=== PATIENT | female | born 1970 | race Caucasian/White ===

== ENCOUNTER 2017-10-03 11:24 | Outpatient (CLI) | payer OTHER, SELFPAY ==
--- NOTE | 2017-10-03 11:21 | DI.REPORT_ITS ---
SYMPTOM/DIAGNOSIS: R TKA BONE LENGTH EXAMINATION AND RIGHT KNEE: Comparison is 01/15/17. The patient is now status post right total knee replacement. The orthopaedic hardware appears in good position. The bones appear intact. The right lower extremity measures 88.9 cm The left lower extremity measures 88.6 cm
== END 2017-10-03 11:25 ==
PROVIDERS: PCP Physician Assistant Medical; Visit Provider Physician Assistant
DX: Z96.651 Presence of right artificial knee joint (principal); Z47.1 Aftercare following joint replacement surgery
CPT/HCPCS: 73560; 77073

== ENCOUNTER 2017-11-01 10:30 | Outpatient (RCR) | payer OTHER, SELFPAY ==
--- NOTE | 2017-10-03 13:00 | IE_ITS ---
Date: 10/03/17 Referring: Dr. Jadon Orellana MD M.D. Diagnosis: s/p right TKA 09/18/17 P.T. Diagnosis: s/p right TKA 09/18/17 SUBJECTIVE: History of Present Illness: Patient is a 47 year old female referred for physical therapy status post R TKA on 09/18/[address] Orellana. She had follow up appointment earlier this morning with Dr. Orellana in which he said the incision is healing well and her ROM looks good per patient report. Says he took off her bandage. She has been doing exercises given to her in the hospital s TKA protocol. Says she is unable to do bridges and supine leg hangs are very painful. States her pain is decreased after completing her exercises. She also has been walking around her yard 3-4 times per day. She has been icing frequently about 6-7 days at home with cryocuff. She is wearing compression stockings both legs. She is not driving. She says she is sleeping terribly and is unable to find comfortable position. She said she will be out of work tentatively for 8 more weeks. She has some numbness and tingling lateral side right knee. She is ambulating using walking sticks and sometimes uses rollator at home. She has follow up with Dr. Orellana on October 31. Pain Ratin /10 presently, 7-8/10 at its worst, 4/10 at best. Pain Location: right anterior lower thigh and diffusely throughout knee. Prior Level of Function: independent Current Level of Function: difficulty sleeping, unable to drive, unable to work. Previous Treatment: Doing exercises given to her in preoperative packet. Social: Works as a pharmacist. Live in home with , kids, and dog. Has 4 steps to enter home. Her bedroom is on the first floor. Comorbidities: arthritis, incontinence Falls in the last year: No Reported hospitalizations in the last year -Yes - Dates of admission/reason: s/p right TKA Medications: hydromorphone, gabapentin, ibuprofen, ASA, docusate, pantoprazole , acetaminophen Quality of Life: Good Standardized Measures: LEFS score: 76% impaired OBJECTIVE: Observation: incision is healing well, no drainage. Pain with sit to supine transfers. Needed UE assistance bringing leg onto plinth. Bruising noted right lateral thigh and posterior knee. Gait: ambulating with walking sticks bilaterally, decreased knee and hip flexion right side, decreased stance time on right side, antalgia with limited stance Edema: swelling noted right knee and anterior thigh Girth measurements: Right side superior patella 52cm, mid patella 47.5cm, infrapatella 42.5cm. Left side superior patella 46cm, mid patella 41 cm, infrapatalla 38.5cm. ROM: Left knee AROM 0-130, Right knee AAROM 10-95 degrees. Hip AAROM WNL bilaterally. Joint Accessory Motion: Right patella femoral mobilizations slightly limited all motions. Strength: Able to perform SLR without extension lag right side. No other formal strength assessment performed. Neuro: numbness and tingling lateral right knee. Intact to light touch rest of right LE. Treatment: IE: [id number] Patient Education: Patient educated to continue performing HEP given to her at hospital, performing the ROM exercises at least twice per day. Educated to continue icing with cryocuff at home. Manual therapy:Performed STM anterior thigh to quad musculature. Patient felt relief after STM. Grade 1/2 anterior tibiafemoral joint mobilizations in sitting with distraction and grade1/2 posterior tibia femoral joint mobilizations in supine. Electrical Stim Unattended - 70349h:1 Inferential stim with cryotherapy x 15 minutes to right knee in supine with wedge under knees for comfort and elevation. Direct treatment time: 45 minutes Total treatment time: 60 minutes ASSESSMENT: Patient is a 47 year-old female referred for PT services with the diagnosis of s /p right TKA. Patient presents with clinical signs and symptoms consistent with diagnosis, as demonstrated by the following impairment level findings: pain , edema, decreased ROM, swelling, decreased motor control, impaired gait. Impairments are contributing to the following functional limitations: difficulty sleeping, unable to drive, unable to work. Patient is assessed as: Low 35422 based on the following: History: See comorbidities and social history. Examination: See above for functional limitations and impairments. Presentation: Stable Decision-Making: Low complexity 76% Disability based on LEFS Patient requires skilled PT intervention to remediate the above functional limitations to return to: __X_ Premorbid level of function __X__ Return to full functional mobility __X__ Return to work demands _X___ Improve QOL Prognosis: Excellent STG: __4__ weeks. 1. Patient will report pain in right knee no more than 4/10 with activity and at rest. 2. Patient will demonstrate right knee AROM 5-110 degrees or better. 3. Patient will score 50% impaired or less on the LEFS. 4. Independent HEP. LTG: __10__ weeks. 1. Patient will report no more then 2/10 pain in right knee at rest and with activity. 2. Patient will demonstrate right knee AROM 0-120 degrees or better. 3. Patient will demonstrate 5/5 strength all muscle groups right LE. 4. Patient will ambulate community distances on even and uneven surfaces with no assistive device and normal gait pattern independently. 5. Patient will score 10% impaired or less on the LEFS. PLAN: Patient to be seen 2 x per week, for 10 weeks, adjusting frequency of visits per patient symptoms and response to treatment. Treatment to include: Manual therapy - [id number]: P/AAROM, soft tissue stretching, joint mobilizations PF/TF, scar tissue massage, cross friction massage Therapeutic exercise - 48848.AROM, LE strengthening, proximal hip and core stabilization, education in HEP. Gait training, stairs training, Standing static and dynamic balance and proprioception activities. Inferential stim, [place] stim, cryotherapy all provided as needed and per protocol. Plan to discharge when above goals have been met. Thank you for this referral. Please do not hesitate to contact me with any questions or concerns regarding this patient's plan of care. Pauline Armenta, SPT Katey Arnold, MPT
--- NOTE | 2017-10-09 08:32 | PTTR_ITS ---
DATE: 10/09/17 SUBJECTIVE: Mairlia states that she feels as though she has turned the corner. She reports sleeping better, and having less pain. She is decreasing her pain meds and icing. Tries to stay active without over doing it. OBJECTIVE: Manual therapy: (73449y5). mobilizations of tib/fem jt including posterior and anterior glides, ROM using MET's in seated and supine position. LE distractions with tibial distractions and stretching into extension. Patella glides in all directions. Stretching of hamstrings, ITB and hip flex/quad in modified Clifford test position. Therapeutic procedures ([id number]). * x See flow sheet: initiated an in clinic routine for global LE strength and bike for ROM. * x Provided skilled instruction in proper exercise performance: proper quad engagement. * x Electrical Stim Unattended - 00877w6: ended with IFC and cryo x 15 min. Direct treatment time: 45 min Total treatment time: 60 min
--- NOTE | 2017-10-11 13:22 | PTTR_ITS ---
DATE: 10/11/17 SUBJECTIVE: Marilia c/o burning pain in the lateral aspect of her knee. She did indicate that she was on her feet a lot yesterday. She also admits that she has not been icing as frequently or wearing her compression stockings. OBJECTIVE: Manual therapy: (07431z3). mobilizations of tib/fem jt including posterior and anterior glides in seated and supine positions. Patella glides in all directions as well as stretching of hamstrings, ITB and hip flex/quads in modified Clifford test position. LE distractions via leg pulls. Scar tissue work and MLD. CFM over lateral knee for desensitization purposes. I continued with ROM of she was at 3-100 post mobs. She did perform stationary bike for ROM and was able to make full revolutions x 6 min, HR and HCS. * x Electrical Stim Unattended - [id number]: ended with IFC and cryo x 15 min. Direct treatment time: 45 min Total treatment time: 60 min
--- NOTE | 2017-10-16 10:30 | PTTR_ITS ---
DATE: October 16, 2017 SUBJECTIVE: Marilia continues to report she feels that she is making steady gains. She notes pain is definitely more than what she thought it would be. She has not driven yet and knows that she needs to get back to this and remains a little nervous in regards to this. OBJECTIVE: Manual therapy: (10187s1).Patellofemoral joint mobilization all planes to the right knee. Scar tissue mobilization. Upon observation has a stitch protruding out of the proximal pole of the incision. No drainage. Tried to pull with tweezers would not come loose. Mild redness surrounding. Will have Marilia keep an eye of this and call MD if gets worse or drainage starts. P/AAROM performed in supine. Soft tissue stretching to the hamstring, ITB and gentle quad in modified Clifford position. LE distractions with good terminal knee extension noted. Tibiofemoral joint mobilization Gr III anterior glides in seated then performed. Flexion stretching also provided in this position. Post mobilization left knee ROM 0-110 degrees. Therapeutic procedures (07037n8). * X HEP review: with focus on knee flexion stretching, and gait mechanics. * X See flow sheet: Open and closed chain stabilization per protocol with 10 minutes of stationary bike for ROM. Able to complete full revolution for entire time. * X Provided skilled instruction in proper exercise performance: promoting proper body mechanics and postural awareness. * X Provided skilled manual cues to facilitate proper muscle recruitment and/ or movement pattern: * X Other: 20 minutes of Wellness portion of the program then followed. Electrical Stim Unattended - 00512v0: Provided to the right knee along with cryotherapy with use of wedge pillow for elevation. This was completed for 15 minutes. Direct treatment time: 30 minutes Total treatment time: 65 minutes
--- NOTE | 2017-10-19 13:00 | PTTR_ITS ---
DATE: 10/19/17 SUBJECTIVE: Marilia states she woke up feeling very good this morning. Was able to take a short walk outside, which felt really good. Feels she is slowly gaining strength and increased mobility. Manual therapy: ([id number]). Did receive mobilization of the R patella as well as tibiofemoral, anterior/posterior mobs while in seated and supine positions. Soft tissue stretching of the R hamstring, ITB, hip flexors and quad musculature while in modified Clifford test position for 3 reps x20-30 seconds each. Stretching into end range flexion/extension was also performed in seated and supine positions. Therapeutic procedures (34385q2). See flow sheet focus was on strengthening on R LE and hip stabilizers as per TKA. * x Provided skilled instruction in proper exercise performance: * x Provided skilled manual cues to facilitate proper muscle recruitment and/ or movement pattern: Performed additional 15 mins of wellness, ending treatment with IFC and cryotherapy with leg elevated on wedge pillow. Direct treatment time: 30 MINS Total treatment time: 60 MINS SG/dl
--- NOTE | 2017-10-22 10:30 | PTTR_ITS ---
DATE: October 22, 2017 SUBJECTIVE: Marilia notes that she overdid at home over the weekend. She spent a lot of time out cleaning in her garden and in her home. She notes that she did some driving over the weekend and is much more confident in her ability to perform. OBJECTIVE: Manual therapy: (88799e9).Patellofemoral joint mobilization to the right knee all planes. Tibiofemoral joint mobilization Gr III anterior glides in seated position, posterior glides in supine position to the right knee. Soft tissue stretching to the hamstring, ITB, and SKC. P/AAROM to the right knee with focus on end range mobility. Post mobilization 5-108 degrees A right knee. Therapeutic procedures (40688e0). * X See flow sheet: Global open and closed chain LE stabilization per TKR protocol. * X Provided skilled instruction in proper exercise performance: promoting proper body mechanics and postural awareness. * X Provided skilled manual cues to facilitate proper muscle recruitment and/ or movement pattern: Electrical Stim Unattended - 87341n0: Ended along with cryotherapy to the right knee post session with use of wedge pillow for elevation. Continue to advance within symptom allowance per protocol. Direct treatment time: 40 minutes Total treatment time: 55 minutes
--- NOTE | 2017-10-25 08:07 | PTTR_ITS ---
DATE: 10/26/17 SUBJECTIVE: Marilia states that she is slowly doing better. She indicates that she sees the MD next week and needs to have a conversation with her boss as the schedule is about to come out. She does not feel as though she is ready to return to work at this point and is nervous she won't be ready for a little while. Her biggest concern about her job is that she works 2.5, 10hr days, which is a long time on her feet. OBJECTIVE: Manual therapy: (23372a0). mobilizations of tib/fem jt including posterior and anterior glides, patella glides in all directions. LE distractions via leg pulls with over pressure stretch into extension. Scar tissue mobs. ROM into flex in both seated and supine using MET's. STM t/o distal ITB. Stretching of hamstrings, ITB and piriformis as well as hip flex/ quad in modified Clifford test position. Therapeutic procedures (14598e7). * x See flow sheet: for global LE strength and stabilization. * x Provided skilled instruction in proper exercise performance: proper quad and glut engagement. She ended with cryo to knee x10 min with elevation. Direct treatment time: 45 min Total treatment time: 55 min.
--- NOTE | 2017-10-30 15:21 | PTTR_ITS ---
DATE: 10/30/17 SUBJECTIVE: Marilia states that she is doing a little better. She admits to doing too much and continues to struggle with swelling. She questions if she needs to continue wearing her compression stockings. She sees Dr. Orellana tomorrow. OBJECTIVE: Manual therapy: (65555q8). mobilizations of tib/fem jt including posterior and anterior glides, patella glides in all directions. Stretching of hamstrings, ITB and quads in the prone position. LE distractions via leg pulls. STM t/o quads and hamstrings. She performed some prone knee hangs x 2 min. ROM was 3-110 post mobs. Therapeutic procedures ([id number]). * x HEP review: encouraged prone knee hangs as well as ROM into flex. * x See flow sheet: for global LE strength and stabilizations. * x Provided skilled instruction in proper exercise performance: proper glut and quad engagement. ended with cryo x 10 min. Direct treatment time: 45 min Total treatment time: 60 min
--- NOTE | 2017-11-01 10:30 | PTTR_ITS ---
DATE: November 01, 2017 SUBJECTIVE: Marilia reports that her follow up went ok. She reports that he threatened a manipulation if she can not easily get to 105 degrees knee bend at her next follow up. She reports that she remains out of work at least until next MD consult in 4 weeks. They also want her to increase her PT regimen to 3x per week to promote her ROM. OBJECTIVE: Manual therapy: (02251t3).Patellofemoral joint mobilization all planes to the right knee. Gr III anterior glides in seated position to the right knee. Posterior glides Gr III supine to the right knee. Sof tissue stretching to the hamstring, ITB, piriformis and quad in modified Clifford position. STM throughout the extensor mechanism. Scar tissue mobilization also provided. P/AAROM to the right knee into flexion and extension with primary focus on end range flexion. Therapeutic procedures ([id number]). * X See flow sheet: Open and closed chain LE strength and stabilization via TKR protocol. * X Provided skilled instruction in proper exercise performance: promoting proper gait mechanics encouraging heel strike with quad set and knee flexion with swing phase. * X Provided skilled manual cues to facilitate proper muscle recruitment and/ or movement pattern: avoiding compensatory movement patterns and continued advancement in resistance and repetitions. Ended with cryotherapy to the right knee post session along with wedge pillow for elevation. Direct treatment time: 45 minutes Total treatment time: 55 minutes
== END 2017-11-02 23:59 | disposition home or self-care (01) ==
LOC: PT 10:30
PROVIDERS: PCP Physician Assistant Medical; Referring Provider Student in an Organized Health Care Education/Training Program; Visit Provider Student in an Organized Health Care Education/Training Program
DX: Z47.1 Aftercare following joint replacement surgery (principal); Z96.651 Presence of right artificial knee joint
CPT/HCPCS: 97014; 97110; 97140; 97161

== ENCOUNTER 2018-06-04 09:43 | Outpatient (CLI) | payer OTHER, SELFPAY ==
[2018-06-04 11:57] LABS: Cholesterol 212 mg/dL (50-200); Glucose 93 mg/dL (70-100); HDL Cholesterol 53 mg/dL (40-60); LDL CHOLESTEROL 120 mg/dL (<100); Triglyceride 129 mg/dL (30-150)
== END 2018-06-04 10:03 ==
PROVIDERS: PCP Nurse Practitioner Family; Visit Provider Nurse Practitioner Family
DX: Z00.00 Encounter for general adult medical examination without abnormal findings (principal); Z13.1 Encounter for screening for diabetes mellitus; Z13.220 Encounter for screening for lipoid disorders
CPT/HCPCS: 36415; 80061; 82947; 83721

== ENCOUNTER 2018-07-03 07:24 | Outpatient (CLI) | payer OTHER, SELFPAY ==
--- NOTE | 2018-07-03 11:00 | DI.MAMMO_ITS ---
SYMPTOM/DIAGNOSIS: SCREENING, Z12.31 MAMMOGRAM: Mammograms were interpreted according to the usual protocol including computer analysis with CAD system, tomosynthesis and C view imaging. Comparison with prior examinations. Breast density B. No suspicious masses or microcalcifications are seen. There is no definite evidence of malignancy. IMPRESSION: Negative mammogram. Routine screening is recommended. Category I. MQSA ASSESSMENT OF FINDINGS: Negative. Category 1. Patient will receive a letter notifying them of these results. BI-RADS category B. There are scattered areas of fibroglandular density.
== END 2018-07-03 07:44 ==
PROVIDERS: PCP Nurse Practitioner Family; Visit Provider Obstetrics & Gynecology Gynecology
DX: Z12.31 Encounter for screening mammogram for malignant neoplasm of breast (principal)
CPT/HCPCS: 77063; 77067

== ENCOUNTER 2018-08-20 13:35 | Outpatient (CLI) | payer OTHER, SELFPAY ==
[2018-08-20 14:29] LABS: Abs Immature Grans 0.02 k/cumm (0.0-0.09); Absolute Basophil Count 0.03 k/cumm (0.0-0.2); Absolute Eosinophil Count 0.08 k/cumm (0.0-0.7); Absolute Lymphocyte Count 3.08 k/cumm (1.2-3.4); Absolute Monocyte Count 0.33 k/cumm (0.11-0.7); Absolute Neutrophil Count 3.72 k/cumm (1.2-6.7); Basophils % 0.4; Eosinophils % 1.1; HCT 37.5 % (36.0-46.0); HGB 12.4 g/dL (12.0-15.5); Immature Grans % 0.3; Lymphocytes % 42.4; Mean Corp. HGB Concentration 33.1 g/dL (32.0-36.0); Mean Corpuscular Hemoglobin 30.8 pg (27.0-33.0); Mean Corpuscular Volume 93.1 fL (80-95); Mean Platelet Volume 9.4 fL (8.0-11.0); Monocytes % 4.5; Neutrophils % 51.3; Platelet Count 330 x1000/uL (130-400); RBC 4.03 m/cumm (4.00-5.20); White Blood Cell Count 7.26 k/cumm (4.4-10.8)
[2018-08-20 15:54] LABS: ALT 25 U/L (12-78); AST 18 U/L (15-37); Albumin 3.3 g/dL (3.4-5.0); Alkaline Phosphatase 79 U/L (46-116); Anion Gap 10.7 mmol/L (3-11); BUN 14 mg/dL (7-18); Bilirubin, Total 0.2 mg/dL (0.2-1.0); C-Reactive Protein 0.48 mg/dL (0.0-0.3); CO2 27.3 mmol/L (21.0-32.0); CREATININE 0.73 mg/dL (0.55-1.02); Chloride 102 mmol/L (98-107); Glucose 120 mg/dL (70-100); Sodium 140 mmol/L (136-145); Total Protein 7.3 g/dL (6.4-8.2)
[2018-08-20 16:33] LABS: Vitamin B12 339 pg/mL (193-986)
== END 2018-08-20 13:55 ==
PROVIDERS: PCP Nurse Practitioner Family; Visit Provider Internal Medicine Gastroenterology
DX: K52.9 Noninfective gastroenteritis and colitis, unspecified (principal)
CPT/HCPCS: 36415; 80053; 82607; 85025; 86140

== ENCOUNTER 2018-10-21 10:04 | Outpatient (CLI) | payer OTHER, SELFPAY ==
--- NOTE | 2018-10-21 09:05 | DI.RAD_ITS ---
SYMPTOM/DIAGNOSIS: RT TKA RIGHT KNEE: 10/21 Two views were obtained and show total knee joint replacement in position. Components appear well seated. No other significant bony abnormality seen.
== END 2018-10-21 10:24 ==
PROVIDERS: PCP Nurse Practitioner Family; Visit Provider Physician Assistant
DX: Z96.651 Presence of right artificial knee joint (principal); Z47.1 Aftercare following joint replacement surgery
CPT/HCPCS: 73560

== ENCOUNTER 2018-10-22 06:25 | Day surgery (SDC) | payer OTHER, SELFPAY ==
[2018-10-22 06:25] VITALS: BP 134/92; PULSE 83; RESP 19; TEMP 36; O2SAT 98
--- NOTE | 2018-10-22 06:56 | HPE_ITS ---
Date of service: 10/22/18 Time of Service: 06:56 Assessment and Plan (1) Frequent stools: Current visit: No Status: None A\\ Chronic Diarrhea Seen by GI at [facility] and they recommended Colonoscopy with biopsies to rule out microscopic colitis P\\ Colonoscopy under sedation with biopsies Risks, benefits and complications have been reviewed. Complications include but are not limited to bleeding, pain, perforation, missed small lesion/polyp, sore throat, aspiration and adverse reaction to the medications. Questions were entertained and answered to their satisfaction and they wished to proceed. No guarantees were given or implied. History of Present Illness Narrative: Marilia is here today to discuss a colonoscopy. She has never had one before. She was seen at [facility] for chronic diarrhea since last year. [facility] recommended Colonoscopy with biopsies to rule out Microscopic colitis. Marilia tells me that she had been taking a lot of Ibuprofen last year for her knee. Her knee feels much better now since she had her total knee replacement. She has stopped taking ibuprofen but continues to have frequent BM's. She ahs ahd 5 BM's so far today. Sometimes she has been incontinent as well. Stool character: watery Stool volume: small Stool frequency: 5-6 x a day Able to tolerate fluids: Yes Associated with meals: No Associated with milk or milk products: No Sorbitol consumption: No Metformin use: No Previous treatment: Reports none Associated symptoms: Reports fecal incontinence; Denies fatigue, fever(s), vo miting or weight loss There have been no changes in her health since she was last seen. [facility] Medical History disc problems Frequent stools Lumbar spine scoliosis R knee injury (Resolved) Right knee DJD (Resolved 07/23/14) Surgical History Biopsy of breast History of total right knee replacement (TKR) (Inactive 09/18/17) Ligation of fallopian tube (~2004) Family History Mother Heart disease Hyperlipidemia Grandmother Diabetes Personal history of malignant neoplasm Social History Smoking/Tobacco Use Status: Never Alcohol Intake: current Alcohol Intake frequency: a few times a month Drug use: Never Substance use type: does not use Household members: spouse, children and other Details: Abdirahman Dooley x 29yrs. Travels for work - sales. Darian Cordon @ [employer] Number of Children: 2 What is your relationship status?: Panel score (0-1 are the most socially isolated patients): 1 Seatbelt use: always Do you feel safe at home: Yes Do you feel safe in your relationship?: Yes Female Reproductive History Menstrual Age of Menarche: 14 Duration of menses: 3-5 days control method: permanent sterilization History History 2 Para Hx # Term Pregnancies 2 Multiple births Hx # Pregnancies Ectopic pregnancies AB induced Hx Number of Living Children AB spontaneous Meds Home Medications Medication Instructions Recorded Confirmed Type calcium carbonate-vitamin D3 1 ea PO DAILY 07/02/17 10/22/18 History acetaminophen [Mapap Extra 1,000 mg PO Q8H #90 tab 09/19/17 10/22/18 Rx Strength] Allergies Allergy/AdvReac Type Severity Reaction Status Date / Time No Known Drug Allergies Allergy unknown Unverified 10/22/18 06:29 Exam [facility] Head: normocephalic and atraumatic Resp Effort & Inspection: normal respiratory effort Auscultation: clear to auscultation bilaterally Cardio Rate: regular rate Rhythm: regular rhythm Heart Sounds: no gallops, no murmurs and no rubs Results Last Vital Signs Temp 96.8 F L 10/22/18 06:25 Pulse 83 10/22/18 06:25 Resp 19 10/22/18 06:25 BP 134/92 H 10/22/18 06:25 Pulse Ox 98 10/22/18 06:25
[2018-10-22] MEDS: Lactated Ringers 1,000 ML 80 ML IV (06:59)
--- NOTE | 2018-10-22 06:59 | W.COLOREPORT ---
Date of service: 10/22/18 Time of Service: : Colonoscopy Report Date of procedure: 10/22/18 Pre-op diagnosis general: Chronic Diarrhea Post-op diagnosis procedure note: same Procedure: Colonoscopy with biopsies and polypectomy Surgeon: Mylene Wolfe Anesthesia proc note operative: other (General/ ASA 2/Ariana Dukes, ELVI) Estimated blood loss (mL): 5 Pathology: other (Randome bx of colon, ascending colon polyp) Complications: None Disposition: same day Indications: Mrs. Rubalcava is a 48 year old female with chronic diarrhea who was seen by [facility] and I was asked to do a Colonoscopy with random biopsies to rule out microscopic colitis. Risks, benefits and complications have been reviewed. Complications include but are not limited to bleeding, pain, perforation, missed small lesion/polyp, sore throat, aspiration and adverse reaction to the medications. Questions were entertained and answered to their satisfaction and they wished to proceed. No guarantees were given or implied. Prep: Miralax/Dulcolax Procedure Start Time: : Procedure End Time: :51 Retraction Time: 17 minutes Findings: Normal appearing colon mucosa. One small polyp in the ascending colon polyp Procedure Description: After informed consent was obtained the patient was taken to the procedure room and placed in a left decubitous position. Monitors were applied and a time out was done. The patients name, date of , procedure, allergies to medications and metal in their body was reviewed. The patient was then sedated. Once sedated and comfortable a rectal exam was done. External exam was normal. Internal exam revealed a normal sphincter tone and no palpable masses. The scope was then introduced and retro-flexed. No internal hemorrhoids were identified. The scope was then advanced to the cecum without difficulty. The TI and appendiceal orifice were identified. The prep was good. The scope was then slowly retracted over 17 minutes back into the rectum. Polyps were removed in the ascending colon with cold forceps. There were diverticula noted in the sigmoid colon. Randomw bx were taken throughout the colon to rule out microscopic colitis. The scope was removed and the patient was woken up and taken back to Same day surgery in stable condition. The patient tolerated the procedure well and there were no immediate complications. Follow up: The patient should follow up in 5 years unless they develop changes in bowel habits or other new gastrointestinal complaints.
--- NOTE | 2018-10-22 07:01 | W.PM.DSUDISC ---
Discharge Plan Disposition Patient Disposition: HOME Condition: Good Discharge Details Reason For Visit: Chronic Diarrhea Attending Provider: Mylene Wolfe Primary Care Provider: Cata Lundy Home Meds and New Rx's Prescriptions: Continued calcium carbonate-vitamin D3 1 EACH tablet 1 ea PO DAILY RF: 0 acetaminophen [Mapap Extra Strength] 500 MG tablet 1,000 mg PO Q8H Qty: 90 RF: 3 Discharge Instructions Instructions: Colonoscopy (GEN), Diverticulosis (ED) Additional Instructions: Findings: Normal appearing colon One small polyp Diverticulosis Follow up: depends on the pathology results Please call if you develop: fevers >101.5 Nausea or Vomiting Abdominal pain that is not transient DAY SURGERY UNIT POST COLONOSCOPY INSTRUCTIONS 1. Because there will be medication in your system for the next 24 hours, you may feel a little sleepy. Your coordination will be affected. Therefore: a. Do not drive or operate dangerous equipment for 24 hours. b. Do not drink alcohol beverages for 24 hours (not even beer). c. Plan to go home and rest for the day. 2. Generally there are no restrictions on your activity after a day or so has gone by, but you may feel a bit fatigued for a few days. 3 After you arrive home you may have a light meal and return to a normal diet as you can tolerate it without feeling sick to your stomach. 4. After surgery, you may feel pain or discomfort. This should be only transient, but if it persists please contact your doctor. 5. If there are any questions regarding the findings of your procedure, please feel free to contact your doctor. 6. If you are unable to contact your doctor with a problem, contact the hospital at [phone]. 7. Continue all your regular medications unless directed otherwise. I understand the above instructions and have no questions. Signature of Patient or Responsible Adult Escort Date/Time Name of Responsible Adult Escort Signature of Nurse Date/Time Activity:: Activity as Tolerated Diet:: As Tolerated Discharge Orders Discharge Orders: Discharge Order (Routine); Ordered 10/22/18 Ordered By: Mylene Wolfe DS: Diagnosis Discharge Diagnosis (1) Frequent stools: Status: None
[2018-10-22] MEDS: Ondansetron 4 MG/2 ML VIAL (07:25)
[2018-10-22] MEDS: Lidocaine 2% Pres-Free 5 ML VIAL (07:25)
[2018-10-22] MEDS: PROPOFOL 500 MG/50 ML BTL 40.5 MG (07:25)
--- NOTE | 2018-10-22 07:30 | BOWEL_PTH ---
PATIENT: Marilia Rubalcava LOC: [facility] U#:[id number] AGE/SX: 48/F ROOM: RE10/22/[address]: Mylene Wolfe MD : 1970 BED: DIS: 10/22/2018 SPEC #: [id number] RECD: 10/22/18 12:40 STATUS: JEANE RE #: [id number] KAREN: 10/22/18 07:[address]: Mylene Wolfe DEPT: Surgical Specimen RECD BY: Beena Bucio ENTERED: 10/22/18 12:42 SP TYPE: Bowel OTHR DR: Cata Lundy Tissues: 1 - BIOPSY BOWEL 2 - BIOPSY BOWEL 3 - BIOPSY BOWEL 4 - BIOPSY BOWEL 5 - BIOPSY BOWEL Procedures: GROSS AND MICRO LEVEL 4 Comments: [id number]
[2018-10-22 08:35] VITALS: BP 132/85; PULSE 83; RESP 16; TEMP 36; O2SAT 96
== END 2018-10-22 09:05 | disposition home or self-care (01) ==
PROVIDERS: PCP Nurse Practitioner Family; Visit Provider Surgery
PROC: 0DJD8ZZ Inspection of Lower Intestinal Tract, Via Natural or Artificial Opening Endoscopic (ICD-10-PCS; CPT 45378; principal; 2018-10-22 07:30)
DX: K52.9 Noninfective gastroenteritis and colitis, unspecified (principal); D12.2 Benign neoplasm of ascending colon; K57.30 Diverticulosis of large intestine without perforation or abscess without bleeding
CPT/HCPCS: 45380; 81025; 88305; NC; J2405

== ENCOUNTER 2019-04-18 14:19 | Outpatient (CLI) | payer OTHER, SELFPAY ==
[2019-04-18 14:49] LABS: Abs Immature Grans 0.01 k/cumm (0.0-0.09); Absolute Basophil Count 0.05 k/cumm (0.0-0.2); Absolute Eosinophil Count 0.07 k/cumm (0.0-0.7); Absolute Monocyte Count 0.65 k/cumm (0.11-0.7); Absolute Neutrophil Count 4.36 k/cumm (1.2-6.7); Basophils % 0.7; HCT 37.7 % (36.0-46.0); HGB 12.2 g/dL (12.0-15.5); Immature Grans % 0.1 %; Mean Corp. HGB Concentration 32.4 g/dL (32.0-36.0); Mean Corpuscular Hemoglobin 30.3 pg (27.0-33.0); Mean Corpuscular Volume 93.8 fL (80-95); Monocytes % 9.1; Neutrophils % 61.1; Platelet Count 346 x1000/uL (130-400); RBC 4.02 m/cumm (4.00-5.20); White Blood Cell Count 7.14 k/cumm (4.4-10.8)
[2019-04-18 16:09] LABS: ALT 18 U/L (14-59); AST 16 U/L (15-37); Albumin 3.3 g/dL (3.4-5.0); Alkaline Phosphatase 82 U/L (46-116); Anion Gap 9.3 mmol/L (3-11); BUN 14 mg/dL (7-18); Bilirubin, Total 0.2 mg/dL (0.2-1.0); C-Reactive Protein 2.06 mg/dL (0.0-0.3); CO2 27.7 mmol/L (21.0-32.0); Calcium 8.4 mg/dL (8.5-10.1); Chloride 106 mmol/L (98-107); Glucose 105 mg/dL (74-106); Potassium 4.1 mmol/L (3.5-5.1); Sodium 143 mmol/L (136-145)
[2019-04-21 12:27] LABS: IgA 543 mg/dL (85-499); IgG 940 mg/dL (610-1,616); IgM 136 mg/dL (35-242)
== END 2019-04-18 14:39 ==
PROVIDERS: PCP Nurse Practitioner Family; Visit Provider Internal Medicine Gastroenterology
DX: K52.9 Noninfective gastroenteritis and colitis, unspecified (principal)
CPT/HCPCS: 36415; 80053; 82784; 83516; 85025; 86140

== ENCOUNTER 2019-05-01 07:34 | Outpatient (REF) | payer OTHER, SELFPAY ==
[2019-05-08 13:26] LABS: Pancreatic Elastase, F >500 mcg/g
== END 2019-05-01 07:54 ==
LOC: LBN 07:34
PROVIDERS: PCP Nurse Practitioner Family; Visit Provider Internal Medicine Gastroenterology
DX: K52.9 Noninfective gastroenteritis and colitis, unspecified (principal)
CPT/HCPCS: 82656; 82710

== ENCOUNTER 2019-08-16 09:41 | Emergency (ER) | payer OTHER, SELFPAY ==
--- NOTE | 2019-08-16 09:44 | ED.GENADUL_ITS ---
Discharge Plan Disposition Patient Disposition: HOME Condition: Good Discharge Details Chief Complaint: Recheck Clinical Impression: Encounter for screening laboratory testing for COVID-19 virus Primary Care Provider: Cata Lundy ED Provider: Miriam Brown Home Meds and New Rx's Prescriptions: Continued calcium carbonate-vitamin D3 1 EACH tablet 1 ea PO DAILY RF: 0 acetaminophen [Mapap Extra Strength] 500 MG tablet 1,000 mg PO Q8H Qty: 90 RF: 3 Discharge Instructions Additional Instructions: Please continue to quarantine until results have returned. If you develop any symptoms please seek care urgently once again. Stand Alone Forms: PENDING COVID-19 TESTING Medical Decision Making COVID-19 swab performed. Patient has been going to for the past 9 days with retained [place]. Patient will continue to quarantine until results have returned. She was given instructions to call Sunday to obtain results. She will return with any new or worsening symptoms. All questions and concerns were addressed and she is agreement with plan. HPI General Mode of arrival: ambulatory . Date/Time Provider Initiated Documentation: 08/16/19 09:44 . Limitations to Documentation: no limitations . Information obtained by: patient and RN notes reviewed . HPI Narrative: Patient is a pleasant 49-year-old female presents today requesting COVID-19 swab be performed secondary return to work. Patient works at the hospital, is an essential healthcare worker. Secondary to emergent family situation patient did have to travel to [place]. She has been quarantined at home for 7 days since returning from [place]. Is here to receive COVID swab so this may be completed prior to her returning to work. Related Data Home Medications Medication Instructions Recorded Confirmed calcium carbonate-vitamin D3 1 ea PO DAILY 07/02/17 08/16/19 acetaminophen [Mapap Extra 1,000 mg PO Q8H #90 tab 09/19/17 08/16/19 Strength] Previous Rx's Medication Instructions Recorded acetaminophen [Mapap Extra 1,000 mg PO Q8H #90 tab 09/19/17 Strength] Allergies Allergy/AdvReac Type Severity Reaction Status Date / Time No Known Drug Allergies Allergy unknown Unverified 08/16/19 09:49 Review of Systems Constitutional Constitutional: Reports as per HPI, Denies chills, Denies fever(s) and Denies headache(s) Eyes Eyes: Reports as per HPI, Denies eye discharge and Denies irritation ENT Ears, Nose, Mouth, and Throat: Reports as per HPI, Denies headache(s) and Denies nasal congestion Cardiovascular Cardiovascular: Reports as per HPI, Denies chest pain and Denies dyspnea Respiratory Respiratory: Reports as per HPI, Denies chest congestion, Denies cough and Denies dyspnea Gastrointestinal Gastrointestinal: Reports as per HPI, Denies abdominal pain, Denies change in bowel habits, Denies nausea and Denies vomiting Integumentary/Breasts Skin/Breast: Reports as per HPI and Denies rash Neurologic Neurologic: Reports as per HPI and Denies headache(s) [facility] Medical History disc problems One thoracic and lumbar Frequent stools 5-6x/day with some urgency. responsive to Metamucil. 08/2014 Celiac Dz w/u neg. 2018 deferred referral to [facility]. Seeing [place] doc at [facility]. Lumbar spine scoliosis R knee injury (Resolved) R knee arthritis. 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 Orellana Ligation of fallopian tube (~2004) done via colpotomy incision Social History Smoking/Tobacco Use Status: Never Alcohol Intake: current Alcohol Intake frequency: a few times a month Drug use: Never Substance use type: does not use Household members: spouse, children and other Details: Kaye- Miah x 29yrs. Travels for work - sales. S, Darian @ [facility] [employer] Number of Children: 2 What is your relationship status?: Panel score (0-1 are the most socially isolated patients): 1 Seatbelt use: always Do you feel safe at home: Yes Do you feel safe in your relationship?: Yes Female Reproductive History Menstrual Age of Menarche: 14 Duration of menses: 3-5 days control method: permanent sterilization History History 2 Para Hx # Term Pregnancies 2 Multiple births Hx # Pregnancies Ectopic pregnancies AB induced Hx Number of Living Children AB spontaneous Exam Const General: cooperative, healthy appearing, comfortable, no acute distress, well developed and well groomed Nutritional Appearance: average body habitus and well nourished Orientation: alert and awake [facility] Head: normal to inspection Ears: hearing grossly normal bilaterally General nose exam: external nose normal Face and sinus: normal facial exam Mouth: oral mucosae normal, lip normal and tongue normal Eyes General: appearance normal, both eyes and all related structures Neck Neck: normal visual inspection, full ROM, no lymphadenopathy and no meningeal signs Resp Effort & Inspection: normal respiratory effort, able to speak in complete sentences and no respiratory distress Auscultation: clear to auscultation bilaterally, no rales, no rhonchi and no wheezes Cardio Rate: regular rate Rhythm: regular rhythm Heart Sounds: S1 normal and S2 normal Skin General skin exam: no rashes or lesions noted Neuro General: patient alert and patient awake Cognition: normal cognition Speech: speech normal Gait: normal gait Psych Appearance: grossly normal and well kempt Mental Status: mental status grossly normal Speech and Movement: speech and movement normal
[2019-08-16 09:46] VITALS: BP 162/85; PULSE 76; RESP 16; TEMP 36.6; O2SAT 99
[2019-08-17 12:47] LABS: COVID-19 RT-PCR UVMMC Result Negative (Negative)
== END 2019-08-16 10:15 | disposition home or self-care (01) ==
PROVIDERS: Emergency Provider Physician Assistant; PCP Nurse Practitioner Family
DX: Z03.818 Encounter for observation for suspected exposure to other biological agents ruled out (principal)
CPT/HCPCS: U0003

== ENCOUNTER 2019-09-23 01:15 | Outpatient (CLI) | payer OTHER, SELFPAY ==
--- NOTE | 2019-09-23 08:00 | DI.MAMMO_ITS ---
EXAM: MG MAMMO SCREENING CLINICAL HISTORY: screening TECHNIQUE: Bilateral full field digital CC and MLO mammographic images were obtained with 3D tomosyn thesis and utilizing computer aided detection (CAD). COMPARISON: Available for comparison. FINDINGS: Masses/Architectural Distortion: None seen. Microcalcifications: No suspicious pleomorphic-type are seen. Skin Thickening/Nipple Retraction: None. IMPRESSION: 1. No significant interval change with no specific features of malignancy noted. 2. Unless there is more urgent need, screening mammography is recommended, as per [employer] guidelines. BI-RADS Category 1 - Negative Breast Density - Category B - Scattered areas of fibroglandular density A negative radiographic report should not delay biopsy if a dominant or clinically suspicious mass is present. Up to ten percent of cancers are not identified on mammography. A negative report may reinforce clinical impression. Adenosis and dense breasts may obscure an underlying neoplasm. False positive reports average 6 to 10%. Patient will receive a letter notifying them of these results.
== END 2019-09-23 01:35 ==
PROVIDERS: PCP Nurse Practitioner Family; Visit Provider Nurse Practitioner Family
DX: Z12.31 Encounter for screening mammogram for malignant neoplasm of breast (principal); R92.2 Inconclusive mammogram
CPT/HCPCS: 77063; 77067

== ENCOUNTER 2019-09-24 04:03 | Outpatient (CLI) | payer OTHER, SELFPAY ==
[2019-09-24 12:23] LABS: Absolute Basophil Count 0.05 k/cumm (0.0-0.2); Absolute Lymphocyte Count 2.95 k/cumm (1.2-3.4); Absolute Monocyte Count 0.43 k/cumm (0.11-0.7); Absolute Neutrophil Count 2.69 k/cumm (1.2-6.7); Basophils % 0.8; Eosinophils % 1.6; HCT 38.5 % (36.0-46.0); HGB 12.3 g/dL (12.0-15.5); Lymphocytes % 47.4; Mean Corp. HGB Concentration 31.9 g/dL (32.0-36.0); Mean Corpuscular Hemoglobin 29.8 pg (27.0-33.0); Mean Corpuscular Volume 93.2 fL (80-95); Mean Platelet Volume 9.4 fL (8.0-11.0); Monocytes % 6.9; Neutrophils % 43.3; Platelet Count 346 x1000/uL (130-400); RBC 4.13 m/cumm (4.00-5.20); RBC Distribution Width 13.3 % (11.7-14.6); White Blood Cell Count 6.22 k/cumm (4.4-10.8)
[2019-09-24 13:05] LABS: Iron 98 ug/dL (50-170); Total Iron Binding Capacity 312 ug/dL (250-450); Transferrin Sat 31 % (15-50)
[2019-09-24 13:29] LABS: Vitamin D 25 Total 18.6 ng/ml (30-100)
[2019-09-24 13:49] LABS: ALT 22 U/L (14-59); AST 17 U/L (15-37); Albumin 3.4 g/dL (3.4-5.0); Alkaline Phosphatase 74 U/L (46-116); BUN 16 mg/dL (7-18); Bilirubin, Total 0.3 mg/dL (0.2-1.0); CREATININE 0.68 mg/dL (0.55-1.02); Chloride 103 mmol/L (98-107); Ferritin 36 ng/mL (8-252); Glucose 90 mg/dL (74-106); Potassium 4.1 mmol/L (3.5-5.1); Sodium 141 mmol/L (136-145); Total Protein 7.4 g/dL (6.4-8.2); Vitamin B12 344 pg/mL (193-986)
[2019-09-24 14:07] LABS: C-Reactive Protein 0.51 mg/dL (0.0-0.3)
[2019-09-26 12:48] LABS: Zinc, Serum 0.71 mcg/mL (0.66-1.10)
== END 2019-09-24 04:23 ==
PROVIDERS: PCP Nurse Practitioner Family; Visit Provider Internal Medicine Gastroenterology
DX: K52.9 Noninfective gastroenteritis and colitis, unspecified (principal)
CPT/HCPCS: 36415; 80053; 82306; 82607; 82728; 83540; 83550; 84630; 85025; 86140

== ENCOUNTER 2019-12-29 09:15 | Outpatient (CLI) | payer OTHER, SELFPAY ==
[2020-01-01 00:10] LABS: Patient Race White; SARS-CoV-2 RNA Undetected (Undetected); SARS-CoV-2 Specimen Source Nasal
== END 2019-12-29 09:35 ==
PROVIDERS: Nurse Practitioner Family; PCP Nurse Practitioner Family; Visit Provider Physician Assistant
DX: Z20.828 Contact with and (suspected) exposure to other viral communicable diseases (principal)
CPT/HCPCS: U0003

== ENCOUNTER 2020-03-04 11:06 | Outpatient (REF) | payer OTHER, SELFPAY ==
[2020-03-05 14:30] LABS: COVID-19 RT-PCR UVMMC Result Negative (Negative)
== END 2020-03-04 11:26 ==
LOC: LBO 11:06
PROVIDERS: Visit Provider Nurse Practitioner Family
DX: Z11.59 Encounter for screening for other viral diseases (principal)
CPT/HCPCS: U0003

== ENCOUNTER 2020-03-09 10:16 | Outpatient (CLI) | payer OTHER, SELFPAY ==
[2020-03-09 23:41] LABS: COVID-19 RT-PCR UVMMC Result Positive (Negative)
== END 2020-03-09 10:36 ==
DX: Z11.59 Encounter for screening for other viral diseases (principal)
CPT/HCPCS: U0003

== ENCOUNTER 2020-03-26 17:57 | Emergency (ER) | payer OTHER, SELFPAY ==
[2020-03-26 18:10] VITALS: BP 147/82; PULSE 88; RESP 18; TEMP 36.4; O2SAT 100
--- NOTE | 2020-03-26 18:15 | DI.RAD_ITS ---
EXAM: XR WRIST LT COMPLETE CLINICAL HISTORY: fall injury. TECHNIQUE: 2D digital imaging was performed. COMPARISON: No exams were available for comparison FINDINGS: There fractures of the distal radius and ulna. The distal radial fracture and violates the radiocarp al joint. There is also a small avulsed fragment off the dorsal aspect of the distal radius. There is also minimally displaced fracture of the ulnar styloid. No carpal dislocation. Scaphoid appears unremarkable. No osseous lesions. IMPRESSION: Fracture of the distal radius which involves the radiocarpal joint. Also ulnar styloid fracture. DATA REPOSITORY: RADIATION DOSE DELIVERED:
--- NOTE | 2020-03-26 18:41 | DI.VRAD_ITS ---
PROCEDURE INFORMATION: Exam: XR Left Wrist Exam date and time: 03/26/2020 6:18 PM Age: 50 years old Clinical indication: Injury or trauma; Blunt trauma (contusions or hematomas); Wrist; Left; Patient HX: Fall injury, per PT: Fell while skating TECHNIQUE: Imaging protocol: XR Left wrist. Views: 3 or more views. COMPARISON: No relevant prior studies available. FINDINGS: Bones/joints: Acute comminuted intra-articular fracture of the distal left radius without significant displacement or angulation. Associated ulnar styloid process fracture. Soft tissues: Normal. IMPRESSION: Acute distal left radius and left ulnar styloid process fracture. Dictated and Authenticated by: Fidel Garner MD. Ordering:SAE Mccall MD
--- NOTE | 2020-03-26 19:21 | W.ED.GENAD ---
Discharge Plan Disposition Patient Disposition: HOME Condition: Stable Discharge Details Clinical Impression: Closed fracture distal radius and ulna Primary Care Provider: Kelli Almeida ED Provider: Cal Rosa Home Meds and New Rx's Prescriptions: Continued vitamin B complex [B Complex-Vitamin B12] Tablet 1 tab PO DAILY RF: 0 diclofenac sodium [Voltaren] 1 % gel 4 g topical QID Qty: 100 RF: 6 calcium carbonate-vitamin D3 1 EACH tablet 1 ea PO DAILY RF: 0 acetaminophen [Mapap Extra Strength] 500 MG tablet 1,000 mg PO Q8H Qty: 90 RF: 3 ibuprofen 800 mg Tablet 800 mg PO TID PRNRF: 0 Discharge Instructions Instructions: Wrist Fracture in Adults (ED) Additional Instructions: Hydrocodone as directed, may cause drowsiness and/or constipation. You may want to take psbv-kom-admwxvy stool softeners while taking this medication. Hnzp-sah-dkkazsn Motrin as directed. You may also use qftm-fyq-fptsuwv Tylenol however remember there is a component of Tylenol in the hydrocodone, do not exceed 4 g/day. Rest, elevate, cool compresses every 2 hours for 20 minutes. Wear splint until reevaluated by orthopedics. I have placed you on the orthopedic list, contact their office on Sunday for prompt outpatient reevaluation. 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 No other injuries. She appears well, nontoxic. Neuro, vascular, tendon intact. Will obtain x-ray to rule out any bony abnormality. X-ray read by me and confirmed by part radiology has an acute distal left radius and left ulnar styloid process fracture. Discussed x-ray findings with patient. I will provide a take-home pack of Vicodin for discomfort. We will place her on the orthopedic list and have her contact orthopedics on Sunday for prompt outpatient reevaluation. Will place lab rolling and then a voar Ortho-Glass splint. Patient tolerated well. Neuro, vascular, tendon intact status post splint administration as examined by me. Sling offered and declined. Patient has no additional questions or concerns and is comfortable discharge at this time. Medical Records Medical records reviewed: Yes I reviewed the patient's medical records. HPI General Mode of arrival: ambulatory. Date/Time Provider Initiated Documentation: 03/26/20 17:59. Limitations to Documentation: no limitations. Information obtained by: patient. HPI Narrative: This is a 50-year-old female, tosg-cgbf-tmyaqjiz, who fell earlier this afternoon on her out stretched left wrist. She reports the pain is moderate at rest, worse with movement. She has taken rffu-nal-zvwwbvb medication for symptomatic control and used ice. She reports occasional tingling in her second and third digit. Denies any true numbness or weakness. Denies any other injuries. Related Data Home Medications Medication Instructions Recorded Confirmed calcium carbonate-vitamin D3 1 ea PO DAILY 07/02/17 03/26/20 acetaminophen [Mapap Extra 1,000 mg PO Q8H #90 tab 09/19/17 03/26/20 Strength] vitamin B complex 1 tab PO DAILY 08/26/19 03/26/20 diclofenac sodium 1 % topical gel 4 g TOPICAL QID #100 g 02/16/20 03/26/20 ibuprofen 800 mg PO TID PRN 03/26/20 03/26/20 Previous Rx's Medication Instructions Recorded acetaminophen [Mapap Extra 1,000 mg PO Q8H #90 tab 09/19/17 Strength] diclofenac sodium 1 % topical gel 4 g TOPICAL QID #100 g 02/16/20 Allergies Allergy/AdvReac Type Severity Reaction Status Date / Time No Known Drug Allergies Allergy unknown Verified 03/26/20 18:12 General Stated Complaint: Orthopedic CHARLEY: 4 Review of Systems Constitutional Constitutional: Denies headache(s) and Denies weakness ENT Ears, Nose, Mouth, and Throat: Denies headache(s) Musculoskeletal Musculoskeletal: Reports arthralgias, Reports joint swelling, Denies numbness, Reports stiffness and Reports tingling Integumentary/Breasts Skin/Breast: Denies erythema Neurologic Neurologic: Denies headache(s), Denies numbness, Reports tingling and Denies weakness [facility] Medical History Acrochordon Ankle fracture, right X 2 Back pain disc problems One thoracic and lumbar Encounter for screening for other viral diseases Encounter for screening laboratory testing for COVID-19 virus Frequent stools 5-6x/day with some urgency. responsive to Metamucil. 08/2014 Celiac Dz w/u neg. 2018 deferred referral to [facility]. [place] [facility] H/O lipoma Right side over scapula- 02/03/20 H/O spider veins H/O varicose veins History of HPV infection Hyperlipidemia Lumbar spine scoliosis Migraine Neck pain, chronic Nevus Osteoarthritis (~03/19/13) [facility] (R) R knee injury R knee arthritis. pt is considering knee replacement Right knee DJD (07/23/14) Seborrheic keratoses Surgical History Biopsy of breast R breast - benign, inverted nipples, procedure as a teen to try to ludin them H/O arthroscopy of knee H/O cystoscopy (~1978) H/O meniscectomy of right knee (~2012) H/O tubal ligation History of total right knee replacement (TKR) (09/18/17) Dr. Orellana Ligation of fallopian tube (~2004) done via colpotomy incision S/P colonoscopy 2018- sessile serrated adenoma S/P excision of lipoma 02/03/20 [place] teeth extracted (~1984) Family History Mother Heart disease Hyperlipidemia Father No problems noted. Son No problems noted. Son No problems noted. Maternal Grandfather , 60 Heart disease Paternal Grandfather , 90 No problems noted. Maternal Grandmother , 70 Heart disease Paternal Grandmother , 72 Ovarian cancer Social History Smoking/Tobacco Use Status: Never Smoking risk assessment performed?: Yes Alcohol Intake: current Alcohol Intake frequency: a few times a week Alcohol type: beer and wine Drug use: Never Substance use type: does not use Household members: spouse and children Housing: house Number of Children: 2 Communication Needs: None Do you need help understanding health information?: Never Pets and animals: Yes Pets and animals: dog(s) Sexually active: Yes Do you think of yourself as: straight/heterosexual Current gender identity: female What is your relationship status?: How often do you talk on the phone with friends or family?: three or more times per week How often do you get together with friends or relatives?: never How often do you attend restorationism or hindu services?: decline to answer Do you belong to any clubs or organized social groups?: yes Panel score (0-1 are the most socially isolated patients): 3 What type of physical activity do you participate in: walking Duration: 30-45 minutes/day Frequency: 1-2 times per week Elana/Congregation: [employer] Special elana needs: No Seatbelt use: always Helmet use: Yes Helmet use: always 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 Do you feel safe at home: Yes Do you feel safe in your relationship?: Yes Victim of physical abuse: No Victim of emotional abuse: No Victim of sexual abuse: No Would you like helpful sources: No Female Reproductive History Menstrual Age of Menarche: 14 Duration of menses: 3-5 days control method: permanent sterilization History History 2 Para Hx # Term Pregnancies 2 Multiple births Hx # Pregnancies Ectopic pregnancies AB induced Hx Number of Living Children AB spontaneous Exam Const General: cooperative, healthy appearing, comfortable and no acute distress Orientation: alert and awake HEN[facility] Head: normal to inspection, normocephalic and atraumatic Eyes General: appearance normal, both eyes and all related structures Conjunctivae: conjunctivae normal Sclera: sclerae normal Neck Neck: normal visual inspection, full ROM, trachea midline and supple Resp Effort & Inspection: normal respiratory effort and able to speak in complete sentences Cardio Rate: regular rate Rhythm: regular rhythm Skin General skin exam: no rashes or lesions noted Neuro General: patient alert, patient awake, moves all extremities and no focal motor deficits Cognition: normal cognition Speech: speech normal Gait: normal gait Motor: muscle tone normal throughout Sensory Exam: no sensory deficits noted Extrem General: full ROM Left upper extremity: full ROM, normal capillary refill, elbow/forearm Details: normal to inspection, normal ROM and distal pulses intact; no tenderness and no swelling, wrist Details: abnormal to inspection, tenderness, swelling, normal ROM, normal vascular exam and radial pulse present; no ecchymosis and hand Details: normal to inspection, normal capillary refill, neuromotor exam normal, neurosensory exam normal, tendon exam normal and normal ROM of fingers Hand/finger images: 1. Diffuse discomfort with both radial and ulnar point tenderness. Full range of motion however pain increases with movement. Skin is intact. Normal capillary refill. Neuro, vascular, tendon intact. Psych Appearance: grossly normal Mental Status: mental status grossly normal Course Vital Signs Vital signs: Vital Signs Temperature 36.4 C L 03/26/20 18:10 Pulse 88 03/26/20 18:10 Respiratory Rate 18 03/26/20 18:10 Blood Pressure 147/82 H 03/26/20 18:10 Pulse Oximetry 100 03/26/20 18:10 Temperature 36.4 C L 03/26/20 18:10 Temperature Source Skin 03/26/20 18:10 Pulse 88 03/26/20 18:10 Respiratory Rate 18 03/26/20 18:10 Respiratory Effort Non-Labored 03/26/20 18:10 Blood Pressure 147/82 H 03/26/20 18:10 Blood Pressure Position Sitting 03/26/20 18:10 Pulse Oximetry 100 03/26/20 18:10 Oxygen Delivery Method Room Air 03/26/20 18:10 Oxygen Flow Rate 0 03/26/20 18:10 Pain Level 5 03/26/20 18:10
== END 2020-03-26 19:35 | disposition home or self-care (01) ==
PROVIDERS: Emergency Provider Physician Assistant
DX: S52.572A Other intraarticular fracture of lower end of left radius, initial encounter for closed fracture (principal); S52.612A Displaced fracture of left ulna styloid process, initial encounter for closed fracture; W00.0XXA Fall on same level due to ice and snow, initial encounter; Y93.21 Activity, ice skating
CPT/HCPCS: 25600; 73110

== ENCOUNTER 2020-03-31 15:09 | Outpatient (CLI) | payer OTHER, SELFPAY ==
--- NOTE | 2020-03-31 15:08 | DI.RAD_ITS ---
EXAM: XR WRIST LT COMPLETE INDICATION: f/u l distal radius frx. COMPARISON: CR,XR XR WRIST LT COMPLETE from 03/26/2020 TECHNIQUE: 2D digital imaging was performed. FINDINGS: There has been no change in the alignment of the distal radial and or ulnar styloid fractures. No ne w abnormalities are seen. DATA REPOSITORY: RADIATION DOSE DELIVERED:
== END 2020-03-31 15:29 ==
PROVIDERS: Visit Provider Student in an Organized Health Care Education/Training Program
DX: S52.592A Other fractures of lower end of left radius, initial encounter for closed fracture (principal); S52.612A Displaced fracture of left ulna styloid process, initial encounter for closed fracture
CPT/HCPCS: 73110

== ENCOUNTER 2020-04-19 01:43 | Outpatient (CLI) | payer OTHER, SELFPAY ==
[2020-04-19 12:39] LABS: ALT 22 U/L (14-59); AST 14 U/L (15-37); Albumin 3.5 g/dL (3.4-5.0); Alkaline Phosphatase 85 U/L (46-116); Anion Gap 8.9 mmol/L (3-11); BUN 17 mg/dL (7-18); Bilirubin, Total 0.2 mg/dL (0.2-1.0); CO2 25.1 mmol/L (21.0-32.0); CREATININE 0.7 mg/dL (0.55-1.02); Calcium 8.7 mg/dL (8.5-10.1); Calculated LDL 130 mg/dL (<100); Chloride 103 mmol/L (98-107); Cholesterol 196 mg/dL (<200); Glucose 95 mg/dL (74-106); HDL Cholesterol 43 mg/dL (40-60); Potassium 4.4 mmol/L (3.5-5.1); Sodium 137 mmol/L (136-145); Total Protein 7.6 g/dL (6.4-8.2); Triglyceride 119 mg/dL (<150)
== END 2020-04-19 01:44 | disposition home or self-care (01) ==
LOC: LOS 01:44
DX: Z00.00 Encounter for general adult medical examination without abnormal findings (principal); Z13.220 Encounter for screening for lipoid disorders
CPT/HCPCS: 36415; 80053; 80061

== ENCOUNTER 2020-04-22 15:21 | Outpatient (CLI) | payer OTHER, SELFPAY ==
--- NOTE | 2020-04-22 15:02 | DI.RAD_ITS ---
EXAM: XR WRIST LT LIMITED CLINICAL HISTORY: f/u L wrist frx. TECHNIQUE: 2D digital imaging was performed. COMPARISON: CR XR WRIST LT COMPLETE from 03/31/2020 FINDINGS: Again noted is the fracture of the distal radius which violates the radiocarpal joint space. Fractur e lines are still evident. Mild healing. No further displacement of the distal radius fracture frag ments. Ulnar styloid fracture is slightly displaced when compared to previous. IMPRESSION: DATA REPOSITORY: RADIATION DOSE DELIVERED:
== END 2020-04-22 15:22 | disposition home or self-care (01) ==
LOC: DIORS 15:21
PROVIDERS: Visit Provider Student in an Organized Health Care Education/Training Program
DX: S52.612D Displaced fracture of left ulna styloid process, subsequent encounter for closed fracture with routine healing (principal); S52.592D Other fractures of lower end of left radius, subsequent encounter for closed fracture with routine healing
CPT/HCPCS: 73100

== ENCOUNTER 2020-05-20 10:27 | Outpatient (CLI) | payer OTHER, SELFPAY ==
--- NOTE | 2020-05-20 09:45 | DI.RAD_ITS ---
EXAM: XR WRIST LT LIMITED CLINICAL HISTORY: f/u fracture. TECHNIQUE: 2D digital imaging was performed. COMPARISON: CR XR WRIST LT LIMITED from 04/22/2020 FINDINGS: Again noted is the distal radial fracture which is again noted to violate the radiocarpal joint space . There has been some further healing. No displacement. Ulnar styloid fracture is again noted, unc hanged. No scaphoid fracture evident. IMPRESSION: DATA REPOSITORY: RADIATION DOSE DELIVERED:
== END 2020-05-20 10:28 | disposition home or self-care (01) ==
LOC: DIORS 10:27
PROVIDERS: Visit Provider Physician Assistant Surgical
DX: S52.592D Other fractures of lower end of left radius, subsequent encounter for closed fracture with routine healing (principal)
CPT/HCPCS: 73100

== ENCOUNTER 2020-06-14 03:35 | Outpatient (CLI) | payer OTHER, SELFPAY ==
[2020-06-14 22:44] LABS: COVID-19 RT-PCR UVMMC Result Negative (Negative)
== END 2020-06-14 03:36 | disposition home or self-care (01) ==
LOC: LBO 03:36
PROVIDERS: Nurse Practitioner Family; Visit Provider Family Medicine
DX: Z20.822 Contact with and (suspected) exposure to COVID-19 (principal)
CPT/HCPCS: U0003

== ENCOUNTER 2020-08-23 12:16 | Outpatient (CLI) | payer OTHER, SELFPAY ==
--- NOTE | 2020-08-23 11:45 | DI.RAD_ITS ---
Exam(s) XR WRIST LT COMPLETE EXAM: XR WRIST LT COMPLETE CLINICAL HISTORY: f/u fracture. TECHNIQUE: 2D digital imaging was performed. COMPARISON: CR XR WRIST LT LIMITED from 05/20/2020 FINDINGS: There has been satisfactory healing of the distal radius fracture site. Further healing and no visua lization of the distal radius fracture site at this time. Fractured ulnar styloid again noted, uncha nged. No scaphoid fracture evident IMPRESSION: Further healing. DATA REPOSITORY: RADIATION DOSE DELIVERED:
== END 2020-08-23 12:17 | disposition home or self-care (01) ==
LOC: DIORS 12:16
PROVIDERS: Visit Provider Student in an Organized Health Care Education/Training Program
DX: S52.612D Displaced fracture of left ulna styloid process, subsequent encounter for closed fracture with routine healing (principal); S52.592D Other fractures of lower end of left radius, subsequent encounter for closed fracture with routine healing
CPT/HCPCS: 73110

== ENCOUNTER 2020-11-29 11:35 | Outpatient (REF) | payer OTHER, SELFPAY ==
--- NOTE | 2020-11-29 10:45 | PAPFT_PTH ---
PATIENT: Marilia Rubalcava LOC: [facility] U#:[id number] AGE/SX: 50/F ROOM: RE11/29/[address]: AIME Bernstein : 1970 BED: DIS: 11/29/2020 SPEC #: [id number] RECD: 11/29/20 13:04 STATUS: JEANE REBhargav #: [id number] KAREN: 11/29/20 10:[address]: Angelia Jodran DEPT: [facility] Cytology RECD BY: Beena Bucio ENTERED: 11/29/20 13:04 SP TYPE: PAPFT OTHR DR: Kelli Almeida APRN Tissues: 1 - CX/ENDOCX FOR PAP SMEARS Procedures: PAP THIN PREP/[facility] Screening HPV DNA PROBE Comments: [id number]
== END 2020-11-29 11:36 | disposition home or self-care (01) ==
LOC: LBN 11:35
PROVIDERS: Visit Provider Nurse Practitioner Family
DX: Z12.4 Encounter for screening for malignant neoplasm of cervix (principal); Z11.51 Encounter for screening for human papillomavirus (HPV)
CPT/HCPCS: 88142; 87624

== ENCOUNTER 2020-12-23 01:54 | Outpatient (CLI) | payer OTHER, SELFPAY ==
--- NOTE | 2020-12-23 10:30 | DI.MAMMO_ITS ---
Exam(s) MAMMO SCREENING EXAM: MAMMO SCREENING CLINICAL HISTORY: screening. TECHNIQUE: Bilateral full field digital CC and MLO mammographic images were obtained with 3D tomosyn thesis and utilizing computer aided detection (CAD). COMPARISON: Prior mammograms dating back to 2012, the most recent being September 2011. FINDINGS: There are no CAD designations. There are no new spiculated masses nor malignant appearing microcalcification groups. There is no significant architectural distortion nor skin thickening-retraction. IMPRESSION: No radiographic evidence of malignancy. BI-RADS Category 1 - Negative Breast Density - Category B - Scattered areas of fibroglandular density Breast density Category C or D implies that the patient has dense breast tissue. Dense breast tissue can make it harder to find cancer on a mammogram. Dense breast tissue is also associated with an incr eased risk of breast cancer. This information about the result of the mammogram report was provided to the patient to raise their awareness. Use this report when you speak with the patient about their risks for breast cancer, which includes their family history. At that time, you may recommend additional screening tests (Ultrasoun d or MRI) as these tests may add significant information. A negative radiographic report should not delay biopsy if a dominant or clinically suspicious mass is present. Up to ten percent of cancers are not identified on mammography. A negative report may reinforce clinical impression. Adenosis and dense breasts may obscure an underlying neoplasm. False positive reports average 6 to 10%. Patient will receive a letter notifying them of these results.
== END 2020-12-23 02:14 ==
PROVIDERS: Visit Provider Nurse Practitioner Family
DX: Z12.31 Encounter for screening mammogram for malignant neoplasm of breast (principal)
CPT/HCPCS: 77063; 77067

== ENCOUNTER → 2022-01-19 02:13 | Outpatient (CLI) | payer OTHER, SELFPAY ==
--- NOTE | 2022-01-19 12:22 | DI.MAMMO_ITS ---
Exam(s) MAMMO SCREENING EXAM: MAMMO SCREENING CLINICAL HISTORY: screening TECHNIQUE: Mammograms were interpreted according to the usual protocol including computer analysis w [employer] CAD system, tomosynthesis and C-view imaging. COMPARISON: FINDINGS: The breasts are of moderate density with fairly symmetrical distribution of fibroglandular tissue. N o dominant mass or clumped microcalcification is identified in either breast. Current examination is compared with previous examinations including December 2020 and there has been no gross interval stone ge in appearance in comparison with the prior studies. IMPRESSION: No specific evidence of malignancy at this time. Routine screening examinations are suggested at yea rly intervals in this age group according to the ACS ACR guidelines. BI-RADS Category 1 - Negative Breast Density - Category B - Scattered areas of fibroglandular density
== END ==
PROVIDERS: PCP Nurse Practitioner Family; Visit Provider Nurse Practitioner Women's Health
DX: Z12.31 Encounter for screening mammogram for malignant neoplasm of breast (principal)
CPT/HCPCS: 77063; 77067

== ENCOUNTER 2022-03-10 10:18 | Day surgery (SDC) | payer OTHER, SELFPAY ==
--- NOTE | 2022-03-09 20:36 | W.PM.DSUDISC ---
Date of service: 03/10/22 Time of Service: 15:57 Discharge Plan Disposition Patient Disposition: Home Condition: Good Discharge Details Reason For Visit: Colonoscopy Attending Provider: Abisai Mccarthy Primary Care Provider: Malka Raygoza Home Meds and New Rx's Prescriptions: Continued Excedrin Extra Strength 250-250-65 mg tablet 1 tab PO Q6H PRN melatonin 5 mg capsule 5 mg PO HS calcium carbonate-vitamin D3 1 EACH tablet 1 ea PO DAILY acetaminophen [Mapap Extra Strength] 500 MG tablet 1,000 mg PO Q8H Qty: 90 3RF ibuprofen 800 mg Tablet 800 mg PO TID PRN benzonatate 200 mg capsule 200 mg PO TID PRN No Action Fiber Gummies 2 gram Tablet,Chewable PO Discharge Instructions Instructions: Diverticulosis Diet (GEN), High Fiber Diet (DC) Additional Instructions: 1. If tolerated, consume a soft, low fiber diet for 1-2 days. [address] Do not drive, drink alcohol, operate machinery, make critical decisions, or do activities that require coordination or balance for 24 hours. 3. Because air was put into your colon during the procedure, expelling air from your rectum (passing gas or farting) is normal. 4. You may not have a bowel movement for 1-3 days because of the colonoscopy prep. This is normal. 5. Go directly to the emergency room if you notice any of the following: Develop chills (warm to touch), or if you have a thermometer and your temperature is above 101 Difficulty breathing or difficultly swallowing Persistent vomiting Severe abdominal pain, other than gas cramps Severe chest pain Black, tarry stools Any bleeding ? exceeding one tablespoon 6. Call your physician if the site where your intravenous was started becomes red, swollen, painful, and warm to touch. 7. Your physician has reviewed your pre-procedure medications. Please continue to take those medications as previously ordered. You will be given specific information/education regarding any changes to your medications before leaving. Activity:: Activity as Tolerated Diet:: As Tolerated Discharge Orders Discharge Orders: Discharge Order (Routine); Ordered 03/09/22 Ordered By: Abisai Mccarthy DS: Diagnosis Discharge Diagnosis (1) Serrated adenoma of colon: Status: Acute Asessment and Plan: Today's colonoscopy was normal. I did not see any evidence of any other polyps. Based on your previous adenoma, I recommend a follow-up colonoscopy in 5 years. You do have some modest sigmoid diverticulosis. Similar to what we talked about beforehand, I would recommend that you increase your dietary fiber. Hopefully, this will help with some of your other symptoms as well.
--- NOTE | 2022-03-09 20:37 | W.COLOREPORT ---
Date of service: 03/10/22 Time of Service: 16:09 Colonoscopy Report Date of procedure: 03/10/22 Pre-op diagnosis general: Screening colonoscopy Post-op diagnosis procedure note: same Procedure: Colonoscopy Surgeon: Abisai Mccarthy Anesthesia Type: General:No Airway Estimated blood loss (mL): 0 Pathology: none sent Complications: None Disposition: same day Indications: Marilia is a 52-year-old woman with chronic diarrhea. She previously underwent a diagnostic colonoscopy. At that time, he underwent polypectomy demonstrating a serrated sessile adenoma. She is here in follow-up for 3-year colonoscopy as surveillance for routine health maintenance. Prep: Miralax/Dulcolax Procedure Start Time: 15:07 Procedure End Time: 15:24 Retraction Time: 12 Findings: Normal colonoscopy Procedure Description: After the induction of monitored anesthetic care, and with the patient in left lateral decubitus position, I began by performing an external anorectal exam.? Perineum and skin were normal, as was the anal verge.? There was no evidence of external hemorrhoids.? Next, I performed a digital rectal exam.? I did not appreciate any abnormal findings.? Next, I advanced a colonoscope into the rectal vault.? I performed retroflexion.? This was normal.? Using insufflation, I then advanced the colonoscope beyond the rectal folds and into the sigmoid colon before advancing towards the cecum.? The quality of the prep was excellent.? There was sigmoid diverticulosis extending from approximately 20 cm from the anal verge through about 35 cm. The scope was noted to be in the cecum by identification of the ileocecal valve and appendiceal orifice.? I then began withdrawing the colonoscope using repeated irrigation as necessary for full evaluation of the colonic mucosa. ?Once the scope was withdrawn to the level of the rectum, great care was taken to examine portions of the rectal folds.? Finally, the scope was withdrawn and the patient was brought to the same-day surgery recovery unit as the anesthetic wore off. ?The findings and instructions were shared with the patient prior to discharge. Based on the nature of her previous adenoma, and this negative colonoscopy, I recommended a follow-up colonoscopy in 5 years.
[2022-03-10 10:50] VITALS: BP 122/76; PULSE 67; RESP 16; TEMP 36.3; O2SAT 98
[2022-03-10] MEDS: Lactated Ringers 1,000 ML 80 ML IV (11:05)
--- NOTE | 2022-03-10 14:02 | ANES.PREOP_ITS ---
General Info Date of Service Date Performed: 03/10/22 Height: 5 ft 7 in Weight: 98.3 kg Body Mass Index (BMI): 33.9 Surgical Procedure: Operation Date: 03/10/22 13:50 Proposed Procedure Side Surgeon p Colonoscopy possible Polypectomy Abisai Mccarthy MD Meds Allergies and Home Medications Allergies Allergy/AdvReac Type Severity Reaction Status Date / Time No Known Drug Allergies Allergy unknown Verified 03/10/22 13:21 Home Medication Medication Instructions Recorded calcium carbonate 500 mg-vitamin 1 ea PO DAILY 07/02/17 D3 3.125 mcg (125 unit) tablet acetaminophen 500 mg tablet (Mapap 1,000 mg PO Q8H #90 tabs 09/19/17 Extra Strength) ibuprofen 800 mg tablet 800 mg PO TID PRN 03/26/20 [id number]-[id number]-[id number] 250 1 tab PO Q6H PRN 03/30/20 mg-250 mg-65 mg tablet (Excedrin Extra Strength) melatonin 5 mg capsule 5 mg PO HS 12/28/21 benzonatate 200 mg capsule 200 mg PO TID PRN 03/08/22 inulin 2 gram chewable tablet g PO 03/10/22 (Fiber Gummies) Current Visit Medications: Current Medications Generic Name Dose Route Start Last Admin Trade Name Freq PRN Reason Stop Dose Admin Hyoscyamine Sulfate 0.125 mg 03/09/22 20:38 Hyoscyamine 0.125 Mg Sl/Oral/Chew SL DIRECTED PRN Ringer's Solution 1,000 mls @ 80 mls/hr 03/10/22 06:00 03/10/22 11:05 IV 04/08/22 23:59 80 mls/hr INFUSION MARCIA Administration IV Miscellaneous Supplies 1 each 03/10/22 06:00 Iv Access IV 04/08/22 23:59 DIRECTED MARCIA Ondansetron HCl 4 mg 03/10/22 06:00 Ondansetron 4 Mg/2 Ml Vial IVP 03/10/22 18:00 PREOP MARCIA Ondansetron HCl 4 mg 03/09/22 20:38 Ondansetron 4 Mg/2 Ml Vial IVP Q4H PRN PRN Nausea / Vomiting Sodium Chloride 0 ml 03/10/22 06:00 Normal Saline Flush 10 Ml Syr IV 04/08/22 23:59 PRN PRN Sodium Chloride 0 ml 03/10/22 06:00 Normal Saline 10 Ml Vial IJ 04/08/22 23:59 DIRECTED PRN Sterile Water 0 ml 03/10/22 06:00 Water,Injection,Sterile 10 Ml Vial IJ 04/08/22 23:59 DIRECTED PRN PFSH Active Problems Active Problems: Problem Status Onset Code PONV (postoperative nausea and vomiting) R11.2, Z98.890 Fatty food intolerance K90.49 Fecal urgency R15.2 Serrated adenoma of colon D12.6 Chronic diarrhea K52.9 DRUJ (distal radioulnar joint) sprain S63.599A Sangeeta-menopause N95.1 Radius fracture S52.90XA Osteoarthritis ~03/19/13 M19.90 Back pain M54.9 Neck pain, chronic M54.2, G89.29 Trigger finger of right thumb M65.311 Trigger finger of left thumb M65.312 Medical History Medical History Acrochordon Ankle fracture, right X 2 disc problems One thoracic and lumbar Encounter for screening for other viral diseases Encounter for screening laboratory testing for COVID-19 virus H/O lipoma Right side over scapula- 02/03/20 H/O spider veins H/O varicose veins History of HPV infection Hyperlipidemia Lumbar spine scoliosis Migraine Nevus R knee injury R knee arthritis. pt is considering knee replacement Right knee DJD (07/23/14) Seborrheic keratoses Medical History Comments:: PONV Surgical History Surgical History Biopsy of breast R breast - benign, inverted nipples, procedure as a teen to try to ludin them H/O arthroscopy of knee H/O cystoscopy (~1978) H/O meniscectomy of right knee (~2012) H/O tubal ligation History of total right knee replacement (TKR) (09/18/17) Dr. Orellana Ligation of fallopian tube (~2004) done via colpotomy incision S/P colonoscopy 2018- sessile serrated adenoma S/P excision of lipoma 02/03/20 [place] teeth extracted (~1984) Tobacco Smoking/Tobacco Use Status: Never Passive smoking exposure: Yes Alcohol Alcohol Intake: current Alcohol intake frequency: a few times a week Alcohol type: beer and wine Substance Use Substance use: Never Substance use type: does not use Counseling provided: none Prental History History 2 Para Hx # Term Pregnancies 2 Multiple births Hx # Pregnancies Ectopic pregnancies AB induced Hx Number of Living Children AB spontaneous Vital Signs and Lab Results Vital Signs Most Recent Vital Signs in EMR: Most Recent Vital Signs Temp Pulse Resp BP Pulse Ox 36.3 C L 67 16 122/76 98 03/10/22 10:50 03/10/22 10:50 03/10/22 10:50 03/10/22 10:50 03/10/22 10:50 Lab Results Blood Type / Crossmatch: No Data to Display Complete Blood Count: No Data to Display Complete Metabolic Panel: No Data to Display Liver Function Panel: No Data to Display Coagulation Panel: No Data to Display Cardiac Panel: No Data to Display Arterial Blood Gas: No Data to Display Venous Blood Gas: No Data to Display Pancreas Panel: No Data to Display Thyroid Panel: No Data to Display Infectious Disease: No Data to Display Blood Cultures: No Data to Display Toxicology Panel: No Data to Display Panel: No Data to Display Anesthesia Assessment and Plan Anesthesia History Personal History: PONV Family History: No Family History of Anesthesia Complications Exercise Tolerance Exercise Tolerance: Metabolic Equivalents>4 Pertinent Negatives Pertinent Negatives: No Symptoms of GERD, No Major Cardiovascular Symptoms or Complaints, No Major Pulmonary Symptoms or Complaints and No History of CVA/TIA Cardiac & Pulmonary Exam Cardiac Exam: Normal S1/S2 Heart Sounds Pulmonary Exam: Clear Bilateral Breath Sounds Implantable Cardiac Device Does patient have a Pacemaker or an ICD?: No Airway Exam Known Difficult Airway: No Mallampati Class: 3 Mouth Opening: Narrow (< 3cm) Thyromental Distance: Greater than 3 cm Neck Range of Motion: Full ROM Neck Circumference: Normal Teeth Condition: Normal Dentition ASA Classification ASA Score: ASA 2 Emergency Case?: No NPO Status NPO Status: NPO Clears >2 hours, Solids >8 hours Status Status: Not Relevant due to Medical History Anesthesia Plan Resuscitation Status: Full Code Anesthesia Technique: General Anesthesia Airway Planned: Natural Airway Monitors Used: Standard Monitors Preoperative Comments:: Toradol 15 mg and zofran 4 mg IV in preop at 1350 for headache and history of PONV
[2022-03-10 15:30] VITALS: BP 113/87; PULSE 95; RESP 16; TEMP 36.4; O2SAT 99
[2022-03-10 15:44] VITALS: BMI 33.9
--- NOTE | 2022-03-10 15:58 | W.ANESPOSTOP ---
Postoperative Evaluation Date, Time and Location Date Performed: 03/10/22 Time Performed: 15:30 Patient Location: Day Surgery Unit Vital Signs Most Recent Imported Vital Signs: Most Recent Vital Signs Temp Pulse Resp BP Pulse Ox 36.4 C L 95 H 16 113/87 99 03/10/22 15:30 03/10/22 15:30 03/10/22 15:30 03/10/22 15:30 03/10/22 15:30 Pain Score Most Recent Pain Score: Most Recent Pain Score Pain Level 0 03/10/22 15:30 Assessment Mental Status: Awake (Alert & Oriented to Patient Baseline) Airway and Respiratory Function: Patent airway with normal (patient baseline) respiratory exam Cardiovascular Function: Hemodynamically Stable Hydration Status: Adequately Hydrated Nausea & Vomiting: No Nausea or Vomiting Pain: Pt. Denies Any Pain Peripheral Nerve Block: Patient did not receive a nerve block
[2022-03-10 16:10] VITALS: BP 124/76; PULSE 90; RESP 16; TEMP 36.5; O2SAT 99
== END 2022-03-10 16:35 | disposition home or self-care (01) ==
LOC: SUR 10:19
PROVIDERS: PCP Nurse Practitioner Family; Visit Provider Surgery
PROC: 0DJD8ZZ Inspection of Lower Intestinal Tract, Via Natural or Artificial Opening Endoscopic (ICD-10-PCS; CPT 45378; principal; 2022-03-10 13:45)
DX: Z12.11 Encounter for screening for malignant neoplasm of colon (principal); Z86.010 Personal history of colon polyps; K52.9 Noninfective gastroenteritis and colitis, unspecified; K57.30 Diverticulosis of large intestine without perforation or abscess without bleeding
CPT/HCPCS: 45378; J1885; J2405

== ENCOUNTER 2022-03-16 21:11 | Outpatient (REF) | payer OTHER, SELFPAY | END 2022-03-16 21:12 | disposition home or self-care (01) | LOC: LBN 21:11 | PROVIDERS: PCP Nurse Practitioner Family; Visit Provider Nurse Practitioner Family | DX: N30.90 Cystitis, unspecified without hematuria (principal); R82.998 Other abnormal findings in urine | CPT/HCPCS: 87077; 87086; 87186 ==

== ENCOUNTER 2022-03-17 01:09 | Outpatient (CLI) | payer OTHER, SELFPAY ==
[2022-03-17 12:45] LABS: ALT 19 U/L (14-59); AST 20 U/L (15-37); Albumin 3.3 g/dL (3.4-5.0); Alkaline Phosphatase 85 U/L (46-116); Anion Gap 8.4 mmol/L (3-11); BUN 13 mg/dL (7-18); Bilirubin, Total 0.4 mg/dL (0.2-1.0); CO2 25.6 mmol/L (21.0-32.0); CREATININE 0.8 mg/dL (0.55-1.02); Calcium 8.6 mg/dL (8.5-10.1); Calculated LDL 113 mg/dL (<100); Chloride 103 mmol/L (98-107); Cholesterol 183 mg/dL (<200); Estimated GFR 88.05 (mL/min/1.73m2); Glucose 95 mg/dL (74-106); HDL Cholesterol 56 mg/dL (40-60); Potassium 3.9 mmol/L (3.5-5.1); Sodium 137 mmol/L (136-145); Total Protein 7.5 g/dL (6.4-8.2); Triglyceride 74 mg/dL (<150)
[2022-03-17 13:07] LABS: Amylase 51 U/L (25-115); Lipase 140 U/L (73-393)
[2022-03-17 23:19] LABS: Estimated Average Glucose 117 mg/dL; Hemoglobin A1C 5.7 % (<5.7)
== END 2022-03-17 01:10 | disposition home or self-care (01) ==
LOC: LOS 01:09
PROVIDERS: PCP Nurse Practitioner Family; Visit Provider Nurse Practitioner Family
DX: E78.5 Hyperlipidemia, unspecified (principal); K52.9 Noninfective gastroenteritis and colitis, unspecified; R73.09 Other abnormal glucose; E66.8 Other obesity
CPT/HCPCS: 36415; 80053; 80061; 83690; 82150; 83036

== ENCOUNTER 2022-04-28 02:33 | Outpatient (CLI) | payer OTHER, SELFPAY ==
[2022-04-28 15:52] LABS: Anion Gap 6.1 mmol/L (3-11); BUN 18 mg/dL (7-18); CO2 29.9 mmol/L (21.0-32.0); CREATININE 0.8 mg/dL (0.55-1.02); Calcium 9.3 mg/dL (8.5-10.1); Chloride 105 mmol/L (98-107); Estimated GFR 88.05 (mL/min/1.73m2); Glucose 100 mg/dL (74-106); Potassium 4.1 mmol/L (3.5-5.1); Sodium 141 mmol/L (136-145)
== END 2022-04-28 02:34 | disposition home or self-care (01) ==
PROVIDERS: PCP Nurse Practitioner Family; Visit Provider Nurse Practitioner Family
DX: E66.9 Obesity, unspecified (principal)
CPT/HCPCS: 36415; 80048

== ENCOUNTER 2022-07-21 03:06 | Outpatient (CLI) | payer OTHER, SELFPAY ==
[2022-07-21 14:54] LABS: Abs Immature Grans 0.02 10^3/uL (0.0-0.06); Absolute Basophil Count 0.05 10^3/uL (0.0-0.2); Absolute Eosinophil Count 1.51 10^3/uL (0.0-0.7); Absolute Lymphocyte Count 3.14 10^3/uL (1.2-3.4); Absolute Monocyte Count 0.39 10^3/uL (0.1-0.8); Absolute Neutrophil Count 3.29 10^3/uL (1.2-6.7); Basophils % 0.6; HCT 36.8 % (36.0-46.0); Immature Grans % 0.2; Lymphocytes % 37.4; MCH 30.5 pg (27.0-33.0); MCHC 32.6 % (32.0-36.0); MCV 94 fL (80-95); MPV 8.9 fL (8.0-11.0); Monocytes % 4.6; Neutrophils % 39.2; Platelet Count 334 10^3/uL (130-400); RBC 3.93 10^6/uL (3.93-5.22); RDW 13.3 % (11.7-14.6); RDW-SD 45.7 fL
[2022-07-21 15:56] LABS: ALT 20 U/L (14-59); AST 17 U/L (15-37); Albumin 3.2 g/dL (3.4-5.0); Alkaline Phosphatase 85 U/L (46-116); Anion Gap 6.8 mmol/L (3-11); BUN 14 mg/dL (7-18); Bilirubin, Total 0.2 mg/dL (0.2-1.0); CO2 31.2 mmol/L (21.0-32.0); CREATININE 0.8 mg/dL (0.55-1.02); Chloride 105 mmol/L (98-107); Estimated GFR 88.05 (mL/min/1.73m2); Ferritin 66 ng/mL (8-252); Glucose 97 mg/dL (74-106); Potassium 3.7 mmol/L (3.5-5.1); Sodium 143 mmol/L (136-145); TSH (W/Ref FT4) 0.65 uIU/mL (0.36-3.74); Total Protein 7.4 g/dL (6.4-8.2); Vitamin B12 376 pg/mL (193-986)
[2022-07-21 17:43] LABS: Vitamin D 25 Total 22.2 ng/mL (30-100)
== END 2022-07-21 03:07 | disposition home or self-care (01) ==
PROVIDERS: PCP Nurse Practitioner Family; Visit Provider Nurse Practitioner Family
DX: R53.83 Other fatigue (principal); R11.2 Nausea with vomiting, unspecified; E55.9 Vitamin D deficiency, unspecified
CPT/HCPCS: 36415; 80053; 82306; 82607; 82728; 84443; 85025

== ENCOUNTER 2023-04-11 08:35 | Emergency (ER) | payer OTHER, SELFPAY ==
[2023-04-11] VITALS (97 sets, daily range): BP systolic 139–180; BP diastolic 75–97; PULSE 62–91; RESP 10–20; TEMP 36.6; O2SAT 93–100
--- NOTE | 2023-04-11 08:30 | RT.EKG_ITS ---
APPROVED REPORT Exam: Resting ECG Reason for Exam: HTN / arm tingling Patient Location: E HR:81 bpm ECG Measurements Heart Rate 81 AXIS DC 132 P 20 QRSd 88 QRS 9 QT 384 T 32 QTc 445 Conclusion Sinus rhythm...normal P axis, V-rate 60- 99
--- NOTE | 2023-04-11 09:03 | W.ED.GENAD ---
HPI General Date/Time Provider Initiated Documentation: 04/11/23 08:37. HPI Narrative: This 53-year-old female presents with headache, dizziness, right fingertip paresthesias and elevated blood pressure. She has been under a great deal of stress at work. Denies any chest pain or shortness of breath associated. States symptoms started 40 minutes prior to arrival. Feels like she might pass out. Denies history of similar symptoms in the past. Denies any additional strength or sensation change. States the headache is resolved. Denies any medications. Related Data Home Medications Medication Instructions Recorded Confirmed fehgrsi-vxfcntuzothbb-nfstadqg 250 1 tab PO Q6H PRN 03/30/20 08/16/22 mg-250 mg-65 mg tablet (Excedrin Extra Strength) melatonin 5 mg capsule 5 mg PO HS 12/28/21 08/16/22 inulin 2 gram chewable tablet g PO 03/10/22 08/16/22 (Fiber Gummies) lidocaine 4 % topical patch 1 patch topical DAILY PRN pain #60 03/16/22 08/16/22 ea erythromycin 5 mg/gram (0.5 %) eye 1 applic ophthalmic (eye) DAILY 10/19/22 ointment #3.5 grams valacyclovir 1 gram tablet 2,000 mg (2 x 1 gram) PO BID PRN 01/29/23 cold sores #60 tabs Previous Rx's Medication Instructions Recorded lidocaine 4 % topical patch 1 patch topical DAILY PRN pain #60 03/16/22 ea erythromycin 5 mg/gram (0.5 %) eye 1 applic ophthalmic (eye) DAILY 10/19/22 ointment #3.5 grams valacyclovir 1 gram tablet 2,000 mg (2 x 1 gram) PO BID PRN 01/29/23 cold sores #60 tabs Allergies Allergy/AdvReac Type Severity Reaction Status Date / Time No Known Drug Allergies Allergy unknown Verified 08/16/22 14:19 General Stated Complaint: Headache CHARLEY: 3 Course Vital Signs Vital signs: Vital Signs Temperature 36.6 C 04/11/23 08:40 Pulse 91 H 04/11/23 08:40 Respiratory Rate 18 04/11/23 08:40 Blood Pressure 180/97 H 04/11/23 08:40 Temperature 36.6 C 04/11/23 08:40 Temperature Source Tympanic 02/07/24 08:40 Pulse 91 H 04/11/23 08:40 Respiratory Rate 18 04/11/23 08:40 Blood Pressure 180/97 H 04/11/23 08:40 Medical Decision Making This 53-year-old female presents with report of headache, dizziness, tingling, started just prior to arrival. GCS 15, alert and oriented x 4, cranial nerves II through XII intact, negative olvjyy-nlib-ircugp, negative sbvf-no-wubu, negative pronator drift, speech intact, extraocular muscles intact, pupils equal round reactive to light and accommodation, ambulatory with steady gait, lungs clear to auscultation, cardiac rate rhythm regular Low suspicion clinically for CVA or TIA Will perform CTA to evaluate for dissection versus bleed CTA does not show acute abnormality, incidental finding of a large left thyroid nodule that will need ultrasound for further evaluation Blood pressure has been persistently elevated in the emergency department, no documented history of hypertension Labs do not show evidence of acute abnormality Patient has resolution of symptoms on reassessment aside from elevated blood pressure discussed with Hugo, FULFILLMENT SPECIALIST will follow-up closely outpatient/ BP recheck and assessment tomorrow return precautions reviewed and resolution of symptoms noted at time of DC home Quality:SDOH Health Related Social Needs: No Data to Display PFSH All Active Problems (Updated 04/11/23 @ 11:16 by DELLA Martin) Dizziness (Acute) Paresthesia (Acute) Elevated blood pressure reading (Acute) Thyroid nodule (Acute) DANIELLA (obstructive sleep apnea) (Chronic) PSG 2022 Chronic diarrhea (Chronic) Prediabetes (Chronic) Hyperlipidemia (Chronic) Osteoarthritis (Chronic) Chronic headache (Chronic) Hearing loss, bilateral (Chronic) Lumbar spine scoliosis (Chronic) Obesity (BMI 30-39.9) (Chronic) Recurrent oral herpes simplex (Chronic) Vitamin D insufficiency (Chronic) Medical History (Updated 04/11/23 @ 11:16 by DELLA Martin) COVID-19 (~05/22/22) Serrated adenoma of colon Surgical History History of breast surgery S/P excision of lipoma (02/03/20) H/O cystoscopy (~1978) H/O arthroscopy of knee H/O tubal ligation H/O meniscectomy of right knee (~2012) S/P colonoscopy 2019- sessile serrated adenoma History of total right knee replacement (TKR) (09/18/17) Dr. Orellana Family History Mother Heart disease Hyperlipidemia Father No problems noted. Son No problems noted. Son No problems noted. Maternal Grandfather , 60 Heart disease Paternal Grandfather , 90 No problems noted. Maternal Grandmother , 70 Heart disease Paternal Grandmother , 72 Ovarian cancer Type 1 diabetes mellitus Brother Type 2 diabetes mellitus Hypertension Social History (Updated 03/16/22 @ 17:15 by Agatha Eastman) Smoking/Tobacco Use Status: Never Smoking risk assessment performed?: Yes Alcohol Intake: current Alcohol Intake frequency: a few times a week Alcohol type: beer and wine Drug use: Never Substance use type: does not use Counseling given: No Counseling provided: none Caregiver/Support person: No Household members: spouse and children Housing: house Number of Children: 2 Communication Needs: None Do you need help understanding health information?: Never Pets and animals: Yes Pets and animals: dog(s) Sexually active: Yes Do you think of yourself as: straight/heterosexual Current gender identity: female What is your relationship status?: How often do you talk on the phone with friends or family?: three or more times per week How often do you get together with friends or relatives?: twice per week How often do you attend restorationist or jehovah's witness services?: decline to answer Do you belong to any clubs or organized social groups?: yes Panel score (0-1 are the most socially isolated patients): 3 What type of physical activity do you participate in: walking Duration: 15-30 minutes/day Frequency: daily Elana/Shinto: Yarsani Special elana needs: No Seatbelt use: always Helmet use: Yes Helmet use: always Drive intox or ride w/intox feedmobile driver: No Do you feel safe at home: Yes Do you feel safe in your relationship?: Yes Victim of physical abuse: No Victim of emotional abuse: No Victim of sexual abuse: No Would you like helpful sources: No Female Reproductive History Menstrual Age of Menarche: 14 Duration of menses: 3-5 days control method: permanent sterilization Menopause type: natural Date of menopause: 08/03/21 History History 2 Para Hx # Term Pregnancies 2 Multiple births Hx # Pregnancies Ectopic pregnancies AB induced Hx Number of Living Children 2 AB spontaneous Discharge Plan Disposition Patient Disposition: Home Discharge Details Clinical Impression: Thyroid nodule, Elevated blood pressure reading, Paresthesia, Dizziness Primary Care Provider: Malka Raygoza ED Provider: Beena Rashid Home Meds and New Rx's Prescriptions: Continued lidocaine 4 % adhesive patch,medicated 1 patch topical DAILY PRN (Reason: pain) Qty: 60 1RF Rx Instructions: Apply patch to most painful area, may leave on for up to 12 hrs Excedrin Extra Strength 250-250-65 mg tablet 1 tab PO Q6H PRN melatonin 5 mg capsule 5 mg PO HS erythromycin 5 mg/gram (0.5 %) ointment 1 applic ophthalmic (eye) DAILY Qty: 3.5 0RF Rx Instructions: 0.5 inch (1.25 cm) applied to affected eye lid 4 times daily for 5 to 7 days valacyclovir 1 gram tablet 2,000 mg PO BID PRN (Reason: cold sores) Qty: 60 1RF Rx Instructions: Take 2 tablets twice a day for 1 day at first onset of symptoms Fiber Gummies 2 gram Tablet,Chewable PO Discharge Instructions Instructions: Dizziness (ED) Additional Instructions: You have an appointment tomorrow with Malka at 1:20 in the afternoon She will recheck your blood pressure and order outpatient thyroid ultrasound Your tests today are reassuring, however you will need close follow-up of the thyroid nodule Please return should you have new, persistent, or worsening complaints Referrals: Malka Raygoza, FULFILLMENT SPECIALIST [Primary Care Provider] - 1 day (1:20) Discharge Data Discharge Date/Time-TO BE ENTERED AT DEPARTURE: 04/11/23 11:36
[2023-04-11 09:25] LABS: Abs Immature Grans 0.01 10^3/uL (0.0-0.06); Absolute Basophil Count 0.05 10^3/uL (0.0-0.2); Absolute Eosinophil Count 0.08 10^3/uL (0.0-0.7); Absolute Lymphocyte Count 2.24 10^3/uL (1.2-3.4); Absolute Monocyte Count 0.45 10^3/uL (0.1-0.8); Absolute Neutrophil Count 2.47 10^3/uL (1.2-6.7); Basophils % 0.9; Eosinophils % 1.5; HCT 34.5 % (36.0-46.0); HGB 11.4 g/dL (11.2-15.7); Immature Grans % 0.2; Lymphocytes % 42.3; MCH 29.8 pg (27.0-33.0); MCV 90 fL (80-95); MPV 9.6 fL (8.0-11.0); Monocytes % 8.5; Neutrophils % 46.6; Platelet Count 309 10^3/uL (130-400); RBC 3.82 10^6/uL (3.93-5.22); RDW 13.1 % (11.7-14.6); RDW-SD 43.7 fL
[2023-04-11] MEDS: Normal Saline - Diluent 50 ML VIAL IJ (09:27)
[2023-04-11] MEDS: Omnipaque 350 MG/ML 500 ML BTL-Imaging package 85 ML IJ (09:27)
--- NOTE | 2023-04-11 09:45 | DI.CT_ITS ---
Exam(s) CT BRAIN NECK CTA EXAM: CT BRAIN NECK CTA CLINICAL HISTORY: right hand paresthesias, headache, dizziness. TECHNIQUE: Imaging Protocol: Axial CT angiography was performed with multi-slice acquisition and mu lti-planar and/or 3D reconstructions. CONTRAST MATERIAL: Intravenous: Omnipaque 350 Contrast volume:structured data in ml COMPARISON: No exams were available for comparison FINDINGS: CTA Neck W: Aortic arch anatomy: The aortic arch anatomy is conventional and there is no significant stenosis at the origin of the great vessels off of the aortic arch. No intimal flap evident. Anterior circulation: Both common carotid arteries ascend with normal luminal diameters. At the level the carotid bulbs and proximal internal carotid arteries there is no significant plaque and no significant stenosis evident. In the upper neck the internal carotid arteries are somewhat tortuous but patent without significant stenosis and are also demonstrated to be patent in the skull base-carotid canals. Posterior circulation: Both vertebral arteries originate in conventional fashion off of the subclavian arteries and there is no obvious stenosis at the origin of the vertebral arteries. Both vertebral arteries exhibit normal luminal diameters within the foramen transversarium. No significant stenosis nor filling defects and no evidence of dissection. Both vertebral arteries contribute to the formation of the basilar artery at the skull base. CTA Brain W: Anterior circulation: Both internal carotid arteries are patent in the skull base-carotid canals as well as within the cave rnous sinuses. The supraclinoid aspects of the ICAs are patent. Both A1 segments are patent as are the anterior cer ebral arteries and there is no evidence of aneurysm at the level of the anterior communicating artery . Both middle cerebral arteries are patent with no evidence of significant stenosis nor intraluminal th rombus. There also no aneurysms of these vessels. Posterior circulation: The basilar artery ascends in the midline. Distally it gives off patent bilateral superior cerebella r arteries. Above this level the basilar artery terminates as patent bilateral posterior cerebral arteries. There is no evidence of aneurysm at the tip of the basilar artery nor elsewhere in the vpeyqr-qc-[id number] is. CT BRAIN: There is no evidence of intracranial hemorrhage, mass effect, or shift of midline structures. There are no extra-axial fluid collections. Ventricles are not enlarged or shifted. There are no ring enh ancing lesions in the brain and no abnormal meningeal enhancement. IMPRESSION: 1. Patent carotid arteries in the neck. No hemodynamically significant stenosis. 2. Patent vertebral arteries. 3. Patent intracranial arteries. No significant stenosis. No aneurysms. 4. Incidentally noted is a large abnormal nodule in left thyroid lobe which requires further study wi th ultrasound examination. Called to ER. RADIATION DOSE DELIVERED: 2,163.25mGy.cm Total DLP DATA REPOSITORY: All CT scans at this facility are submitted to the National Radiology Data Registry (NRDR) Dose Index Registry (DIR) with the [employer] ([employer]). RADIATION OPTIMIZATION: All CT scans at this facility use at least one of these dose optimization te chniques: automated exposure control; mA and/or kV adjustment per patient size (includes targeted exa ms where dose is matched to clinical indication); or iterative reconstruction.
--- NOTE | 2023-04-11 09:50 | DI.RAD_ITS ---
Exam(s) XR CHEST 2V PA LATERAL EXAM: XR CHEST 2V PA LATERAL CLINICAL HISTORY: dizziness, palpitations. TECHNIQUE: 2D digital imaging was performed. COMPARISON: No exams were available for comparison FINDINGS: 2 views: Heart size is normal. The mediastinum is not widened. Lungs are clear. No infiltrates nor pleural effusions. IMPRESSION: No acute pulmonary findings. DATA REPOSITORY: RADIATION DOSE DELIVERED:
[2023-04-11 10:46] LABS: ALT 26 U/L (14-59); AST 24 U/L (15-37); Albumin 3.5 g/dL (3.4-5.0); Alkaline Phosphatase 79 U/L (46-116); BUN 17 mg/dL (7-18); Bilirubin, Total 0.3 mg/dL (0.2-1.0); CREATININE 0.6 mg/dL (0.55-1.02); Chloride 102 mmol/L (98-107); Glucose 102 mg/dL (74-106); Potassium 4.1 mmol/L (3.5-5.1); Sodium 139 mmol/L (136-145); Troponin I < 50 ng/L (< or =60)
[2023-04-12 15:39] LABS: Lab Add On Test DONE
[2023-04-12 16:28] LABS: Vitamin B12 320 pg/mL (193-986)
[2023-04-12 16:54] LABS: Hemoglobin A1C 5.7 % (<5.7)
[2023-04-12 23:29] LABS: Hepatitis C Ab w Rflx HCV PCR Negative (Negative)
== END 2023-04-11 11:36 | disposition home or self-care (01) ==
PROVIDERS: Emergency Provider Physician Assistant; PCP Nurse Practitioner Family
DX: R42 Dizziness and giddiness (principal); E04.1 Nontoxic single thyroid nodule; R03.0 Elevated blood-pressure reading, without diagnosis of hypertension; R20.0 Anesthesia of skin
CPT/HCPCS: 36415; 70496; 70498; 80053; 86803; 93005; 99285; 71046; 82607; 83036; 83735; 84443; 84484; 85025; 93010; 99284

== ENCOUNTER → 2023-04-30 03:01 | Outpatient (CLI) | payer OTHER, SELFPAY | PROVIDERS: PCP Nurse Practitioner Family; Visit Provider Nurse Practitioner Family | DX: Z12.31 Encounter for screening mammogram for malignant neoplasm of breast (principal) | CPT/HCPCS: 77063; 77067 ==

== ENCOUNTER → 2023-05-29 02:15 | Outpatient (CLI) | payer OTHER, SELFPAY ==
--- NOTE | 2023-05-29 08:00 | DI.US_ITS ---
Exam(s) US NEEDLE LOCAL OTHER WO RAD EXAM: Left thyroid nodules meeting criteria for biopsy,e04.2,ultrasound guided bx COMPARISON: CT CT BRAIN NECK CTA from 04/11/2023 US US THYROID from 04/16/2023 TECHNIQUE: Ultrasound performed using standard protocol. FINDINGS: Sonography was provided for Dr. Suggs during the performance of a left thyroid nodule biopsy. Plea se refer to the procedure report for complete details. DATA REPOSITORY:
--- NOTE | 2023-05-29 11:45 | PAPNONF_PTH ---
PATIENT: Marilia Rubalcava LOC: [facility] U#:[id number] AGE/SX: 55/F ROOM: RE05/29/[address]: Andrew Suggs MD : 1970 BED: DIS: SPEC #: [id number] RECD: 05/29/23 12:55 STATUS: JEANE FERNANDEZ #: [id number] KAREN: 05/29/23 11:[address]: Andrew Suggs DEPT: [facility] Cytology RECD BY: Beena Bucio ENTERED: 05/29/23 12:57 SP TYPE: SAVANNAH FUENTES DR: Malka Raygoza, AIME Tissues: 1 - BODY FLUID CYTO(NOT S/U/N/EM)[facility] 2 - BODY FLUID CYTO(NOT S/U/N/EM)[facility] Procedures: BODY FLUID CYTO(NOT SPU/UR/NIP/ENDOM)[facility] Comments: [id number] (PATH FNA CONSULT) (REFRIGERATED)
--- NOTE | 2023-05-29 11:56 | OPPNE_ITS ---
Date of service: 05/29/23 Time of Service: 11:57 Procedure Note Date of procedure: 05/29/23 Procedure: Ultrasound-guided FNA, left thyroid nodule x 2, pathology present Procedure Diagnosis: Left thyroid nodules meeting criteria for biopsy Procedure Indications: The patient was found to have 3 distinct nodules on the left meeting criteria for biopsy. Ultrasound today revealed only 2 distinct nodules. As such, options were explained the patient. I recommended that we biopsy both. Written consent was obtained. The below was then performed. Risks including bleeding, infection, and need for further treatment including nondiagnostic biopsies were discussed in detail. Procedure Description: The patient was positioned in a supine position with her neck slightly extended. She was prepped and draped in appropriate fashion. Ultrasound was used to localize first the larger of the 2 nodules in the left thyroid, and then 1% lidocaine with 1/100,000 epinephrine was injected in the skin and subcutaneous tissues overlying this. A 25-gauge needle was passed into the thyroid nodule, and repeatedly passed through the nodule solid tissue. The specimen was handed off to pathology who evaluated it for cellular adequacy and felt there was adequate cellularity. 2 additional passes were made under ultrasound guidance for potential Afirma testing. Attention was then turned to the smaller nodule measuring 1.7 cm. Ultrasound was again used to localize the nodule, and the skin and subcutaneous tissues overlying the nodule were anesthetized with 1% lidocaine with 1/100,000 epinephrine. 25-gauge needle was then passed into the nodule repeatedly, with quick prep slides revealing only cystic contents and macrophages. A total of 3 separate passes were made, with similar results. The additional material aspirated was placed into CytoLyt and after discussion with the patient, the decision was made not to attempt any further FNA of this nodul e. As such, 2 additional passes were made for potential Afirma testing. Both wounds were inspected revealing hemostasis. Sterile dressings were applied and the patient was allowed to sit and then stand and ambulate. Her vital signs remained stable. She will call if she does not hear from me within 1 week. She will remove the bandage within an hour. She will call with any signs of infection or with any concerns. She could use Tylenol or ibuprofen if she needs it for discomfort.
== END ==
PROVIDERS: PCP Nurse Practitioner Family; Visit Provider Otolaryngology
DX: E04.2 Nontoxic multinodular goiter (principal); E07.9 Disorder of thyroid, unspecified
CPT/HCPCS: 10005; 76942; 88104

== ENCOUNTER 2024-01-24 15:48 | Outpatient (CLI) | payer OTHER, SELFPAY ==
--- NOTE | 2024-01-24 14:30 | DI.RAD_ITS ---
Exam(s) XR KNEE RT 3V AP,LAT,JO-ANN EXAM: XR KNEE RT 3V AP,LAT,JO-ANN CLINICAL HISTORY: RIGHT KNEE PAIN. TECHNIQUE: 2D digital imaging was performed. Three views. COMPARISON: CR XR knee RT 2V AP,lat from 10/21/2018 FINDINGS: BONES: No acute fracture is present. No bony destructive lesion is seen. Total knee prosthesis again noted. The alignment is unchanged. JOINTS: The knee is normally aligned. No joint effusion is seen. SOFT TISSUE: Normal. IMPRESSION: Stable appearance of total knee prosthesis. DATA REPOSITORY: RADIATION DOSE DELIVERED:
== END 2024-01-24 15:49 | disposition home or self-care (01) ==
LOC: DIORS 15:48
PROVIDERS: PCP Nurse Practitioner Family; Visit Provider Student in an Organized Health Care Education/Training Program
DX: Z96.651 Presence of right artificial knee joint (principal); Z47.1 Aftercare following joint replacement surgery
CPT/HCPCS: 73562

== ENCOUNTER 2024-04-30 03:28 | Outpatient (CLI) | payer OTHER, SELFPAY ==
[2024-04-30 08:43] LABS: HCT 40.1 % (36.0-46.0); HGB 12.6 g/dL (11.2-15.7); MCH 29.6 pg (27.0-33.0); MCHC 31.4 % (32.0-36.0); MCV 94 fL (80-95); MPV 9.3 fL (8.0-11.0); Platelet Count 285 10^3/uL (130-400); RBC 4.26 10^6/uL (3.93-5.22); RDW 13.2 % (11.7-14.6); RDW-SD 45.3 fL; WBC 5.55 10^3/uL (4.4-10.8)
[2024-04-30 08:55] LABS: Hemoglobin A1C 5.9 % (<5.7)
[2024-04-30 09:18] LABS: Anion Gap 8.3 mmol/L (3-11); BUN 12 mg/dL (7-18); CO2 28.7 mmol/L (21.0-32.0); CREATININE 0.6 mg/dL (0.55-1.02); Calcium 8.9 mg/dL (8.5-10.1); Calculated LDL 131 mg/dL (<100); Chloride 104 mmol/L (98-107); Cholesterol 213 mg/dL (<200); Estimated GFR 105.94 (mL/min/1.73m2); Glucose 94 mg/dL (74-106); HDL Cholesterol 66 mg/dL (40-60); Sodium 141 mmol/L (136-145); TSH (W/Ref FT4) 0.74 uIU/mL (0.36-3.74); Triglyceride 80 mg/dL (<150); Vitamin D 25 Total 14.4 ng/mL (30-100)
[2024-05-01 13:18] LABS: HIV-1/2 Ag & Ab Screen Negative (Negative)
[2024-05-01 13:27] LABS: HBs Antibody, Quant 10.2 mIU/mL (See Note); Hep B Surface Ab Positive (See Note); Hepatitis B Core Antibody Negative (Negative); Hepatitis B Surface Antigen Negative (Negative)
== END 2024-04-30 03:29 | disposition home or self-care (01) ==
LOC: LBO 03:28
PROVIDERS: PCP Nurse Practitioner Family; Visit Provider Nurse Practitioner Family
DX: E04.2 Nontoxic multinodular goiter (principal); R73.03 Prediabetes; E78.5 Hyperlipidemia, unspecified; Z11.59 Encounter for screening for other viral diseases; Z11.4 Encounter for screening for human immunodeficiency virus [HIV]; E55.9 Vitamin D deficiency, unspecified
CPT/HCPCS: 36415; 80048; 80061; 82306; 85027; 86704; 86706; 87340; 87389; 83036; 84443

== ENCOUNTER 2024-05-05 01:14 | Outpatient (CLI) | payer OTHER, SELFPAY ==
--- NOTE | 2024-05-05 07:30 | DI.MAMMO_ITS ---
Exam(s) MAMMO SCREENING EXAM: MAMMO SCREENING CLINICAL HISTORY: screening,z12.39. TECHNIQUE: Bilateral full field digital CC and MLO mammographic images were obtained with 3D tomosyn thesis and utilizing computer aided detection (CAD). COMPARISON: Prior mammograms were reviewed. FINDINGS: There has been no significant change in the appearance and distribution of the fibroglandular tissue. No CAD designations. There are no new spiculated masses nor malignant appearing microcalcification groups. There is no significant architectural distortion nor skin thickening-retraction. IMPRESSION: No radiographic evidence of malignancy. BI-RADS Category 1 - Negative Breast Density - Category B - Scattered areas of fibroglandular density Breast density Category C or D implies that the patient has dense breast tissue. Dense breast tissue can make it harder to find cancer on a mammogram. Dense breast tissue is also associated with an incr eased risk of breast cancer. This information about the result of the mammogram report was provided to the patient to raise their awareness. Use this report when you speak with the patient about their risks for breast cancer, which includes their family history. At that time, you may recommend additional screening tests (Ultrasoun d or MRI) as these tests may add significant information. A negative radiographic report should not delay biopsy if a dominant or clinically suspicious mass is present. Up to ten percent of cancers are not identified on mammography. A negative report may reinforce clinical impression. Adenosis and dense breasts may obscure an underlying neoplasm. False positive reports average 6 to 10%. Patient will receive a letter notifying them of these results.
== END 2024-05-05 01:34 ==
PROVIDERS: PCP Nurse Practitioner Family; Visit Provider Nurse Practitioner Family
DX: Z12.31 Encounter for screening mammogram for malignant neoplasm of breast (principal); R92.323 Mammographic fibroglandular density, bilateral breasts
CPT/HCPCS: 77063; 77067

== ENCOUNTER 2024-08-21 10:37 | Outpatient (CLI) | payer OTHER, SELFPAY ==
[2024-08-21 10:21] LABS: Anion Gap 6.9 mmol/L (3-11); BUN 20 mg/dL (7-18); CO2 29.1 mmol/L (21.0-32.0); CREATININE 0.7 mg/dL (0.55-1.02); Calcium 9.3 mg/dL (8.5-10.1); Chloride 105 mmol/L (98-107); Estimated GFR 102.07 (mL/min/1.73m2); Glucose 92 mg/dL (74-106); Potassium 4.7 mmol/L (3.5-5.1); Sodium 141 mmol/L (136-145); Vitamin D 25 Total 37 ng/mL (30-100)
== END 2024-08-21 10:38 | disposition home or self-care (01) ==
LOC: LBO 10:37
PROVIDERS: PCP Nurse Practitioner Family; Visit Provider Nurse Practitioner Family
DX: E55.9 Vitamin D deficiency, unspecified (principal)
CPT/HCPCS: 36415; 80048; 82306

== ENCOUNTER 2024-10-21 14:59 | Outpatient (CLI) | payer OTHER, SELFPAY ==
--- NOTE | 2024-10-21 15:23 | DI.RAD_ITS ---
Exam(s) XR FOOT RT COMPLETE EXAM: XR FOOT RT COMPLETE CLINICAL HISTORY: Rt foot pain, M79.671. TECHNIQUE: 2D digital imaging was performed. Three views. COMPARISON: CR LEFT FOOT COMPLETE from 03/11/2014 FINDINGS: BONES: No acute fracture is present. No bony destructive lesion is seen. Small enthesophyte at the posterior calcaneus JOINTS: No dislocation present. Mild degenerative changes of the 1st MTP joint. No significant degenerative changes elsewhere. SOFT TISSUE: Normal. IMPRESSION: Small calcaneal enthesophyte. Mild degenerative changes of the 1st MTP joint. DATA REPOSITORY: RADIATION DOSE DELIVERED:
== END 2024-10-21 15:19 ==
LOC: DI 14:59
PROVIDERS: PCP Nurse Practitioner Family; Visit Provider Podiatrist
DX: M19.071 Primary osteoarthritis, right ankle and foot (principal)
CPT/HCPCS: 73630

== ENCOUNTER → 2025-01-01 13:06 | Outpatient (CLI) | payer OTHER, SELFPAY ==
--- NOTE | 2025-01-01 12:08 | DI.RAD_ITS ---
Exam(s) XR CERVICAL SPINE COMP 4-5V EXAM: XR CERVICAL SPINE COMP 4-5V CLINICAL HISTORY: M54.2 Cervicalgia, chronic neck pain. TECHNIQUE: 2D digital imaging was performed. Six images were obtained. AP, odontoid, lateral and bilateral oblique images were obtained. COMPARISON: No exams were available for comparison FINDINGS: The odontoid is intact. The lateral masses are well aligned. There is normal alignment of the cervical spine. There is mild narrowing at C5-C6. No acute fracture or subluxation is present. Degenerative changes of the facets are seen at multiple levels. There is mild narrowing of the left neural foramen at C5- C6. The cervical thoracic junction is well maintained. The prevertebral soft tissues are unremarkable. Lung apices are clear. IMPRESSION: Mild degenerative changes seen in the cervical spine. DATA REPOSITORY: RADIATION DOSE DELIVERED:
--- NOTE | 2025-01-01 12:08 | DI.RAD_ITS ---
Exam(s) XR THORACIC SPINE COMPLETE EXAM: XR THORACIC SPINE COMPLETE CLINICAL HISTORY: M54.6, G89.29 Chronic thoracic pack pain, Other chronic pain. TECHNIQUE: 2D digital imaging was performed of the thoracic spine. Three views were obtained. AP, swimmer's and lateral views were obtained. COMPARISON: CR XR CERVICAL SPINE COMP 4-5V from 01/01/2025 FINDINGS: BONES: There is no fracture or destructive lesion. The vertebral bodies and posterior elements are unremarkable. DISKS:There is a right convex thoracic scoliosis. There is disc space narrowing seen in the midthoracic spine. Endplate osteophytes are seen at multiple levels of the thoracic spine. SOFT TISSUE: Visualized lungs are clear. IMPRESSION: Mild degenerative changes in the thoracic spine. Right convex thoracic scoliosis. DATA REPOSITORY: RADIATION DOSE DELIVERED:
--- NOTE | 2025-01-01 12:08 | DI.RAD_ITS ---
Exam(s) XR LUMBAR SPINE COMPLETE EXAM: XR LUMBAR SPINE COMPLETE CLINICAL HISTORY: M54.50,G89.29 Chronic low back pain,other chronic pain. TECHNIQUE: 2D digital imaging was performed of the lumbar spine. Five images were obtained. AP, lateral, right oblique, left oblique and L5-S1 spot views were obtained. COMPARISON: No exams were available for comparison FINDINGS: BONES: No fracture or destructive lesion. There osteophytes present throughout the lumbar spine. Degenerative changes are seen in the facets. DISKS: There is disc space narrowing at L2-3 and L3-L4. ALIGNMENT: There is a levoscoliosis. No spondylolysis or spondylolisthesis. SOFT TISSUE: Normal. IMPRESSION: Moderate degenerative changes in the lumbar spine and levoscoliosis. DATA REPOSITORY: RADIATION DOSE DELIVERED:
== END ==
LOC: DI 13:06
PROVIDERS: PCP Nurse Practitioner Family; Visit Provider Nurse Practitioner Family
DX: M41.24 Other idiopathic scoliosis, thoracic region (principal); M51.35 Other intervertebral disc degeneration, thoracolumbar region
CPT/HCPCS: 72050; 72072; 72110

== ENCOUNTER 2025-02-13 01:36 | Outpatient (CLI) | payer OTHER, SELFPAY ==
[2025-02-13 15:30] LABS: Abs Immature Grans 0.02 10^3/uL (0.0-0.06); HCT 35.9 % (36.0-46.0); HGB 11.8 g/dL (11.2-15.7); Immature Grans % 0.3 %; MCH 29.4 pg (27.0-33.0); MCHC 32.9 % (32.0-36.0); MCV 90 fL (80-95); MPV 9.1 fL (8.0-11.0); Platelet Count 315 10^3/uL (130-400); RBC 4.01 10^6/uL (3.93-5.22); RDW 12.8 % (11.7-14.6); RDW-SD 42.4 fL; WBC 6.75 10^3/uL (4.4-10.8)
[2025-02-13 16:08] LABS: ALT 12 U/L (10-49); AST 17 U/L (<34); Albumin 4.4 g/dL (3.2-5.0); Alkaline Phosphatase 70 U/L (46-116); Anion Gap 10.5 mmol/L (3-11); BUN 13 mg/dL (9-23); Bilirubin, Total 0.4 mg/dL (0.2-1.2); CO2 25.5 mmol/L (20.0-31.0); Calcium 9.4 mg/dL (8.3-10.6); Chloride 104 mmol/L (98-107); Glucose 94 mg/dL (74-106); Potassium 3.7 mmol/L (3.5-5.1); Sodium 140 mmol/L (136-145); Total Protein 7.6 g/dL (5.7-8.2)
== END 2025-02-13 01:37 | disposition home or self-care (01) ==
LOC: LBO 01:36
PROVIDERS: PCP Nurse Practitioner Family; Visit Provider Nurse Practitioner Family
DX: R11.2 Nausea with vomiting, unspecified (principal); R19.7 Diarrhea, unspecified
CPT/HCPCS: 36415; 80053; 85025